=== PATIENT | male | born 1955 | race Two or more races ===

== ENCOUNTER 2021-01-31 08:47 | Inpatient (IN) | payer OTHER ==
[2021-01-31] MEDS ORDERED: Apixaban 5 MG Tab PO ONE (09:06)
[2021-01-31] MEDS ORDERED: Diltiazem 50 MG/10 ML SDV ONE (09:06)
[2021-01-31] MEDS: Diltiazem 50 MG/10 ML SDV IVPUSH ONE ×2 (09:07→09:19)
[2021-01-31] MEDS ORDERED: Sodium Chloride 0.9% 10 ML Syringe FLUSH PRN ×2 (09:07→11:42)
--- NOTE | 2021-01-31 09:16 | EDM.PDOC ---
ED HPI GENERAL MEDICAL PROBLEM - General Chief Complaint: Chest Pain Stated Complaint: CHEST PAIN/SOB Time Seen by Provider: 01/31/21 08:55 Source of Information: Reports: Patient History Limitations: Reports: No Limitations - History of Present Illness INITIAL COMMENTS - FREE TEXT/NARRATIVE: 65-year-old male presents to the emergency department today with complaints of shortness of breath and chest pain. He states this started 4 days ago. He states he was just resting at home when he developed the pain and shortness of breath. Patient denies any recent fever, chills, nausea, vomiting or diarrhea. He states nothing weeks the chest pain and shortness of breath worse or better. He does have a history of diabetes for which he is insulin-dependent however he ran out of his insulin about 1 week ago and has not refilled it. He states this is due to financial reasons and he cannot afford it. Nursing staff reports that his bedside blood glucose is 244. Patient states he does have a history of atrial fibrillation in the past however he states he was not started on any chronic medications or blood thinners. He reports he was hospitalized for this once in the past and eventually his heart went back into a normal rhythm and then he was discharged home. Chest Pain Score (Numeric/FACES): 2 - Related Data Allergies Allergy/AdvReac Type Severity Reaction Status Date / Time No Known Allergies Allergy Verified 01/31/21 09:12 Home Meds: Home Meds metFORMIN [Glucophage] 1,000 mg PO BID 10/25/15 [History] Empagliflozin [Jardiance] 25 mg PO 01/31/21 [History] Insulin Glarg,Human.Rec.Analog [Lantus] 32 units SQ BEDTIME 01/31/21 [History] Past Medical History HEENT History: Reports: Impaired Vision Other HEENT History: reading eyeglasses Cardiovascular History: Reports: Hypertension Musculoskeletal History: Reports: Fracture Endocrine/Metabolic History: Reports: Diabetes, Type II ED ROS GENERAL - Review of Systems Review Of Systems: See Below Constitutional: Reports: No Symptoms HEENT: Reports: No Symptoms Respiratory: Reports: Shortness of Breath. Denies: Pleuritic Chest Pain, Cough, Sputum Cardiovascular: Reports: Chest Pain (X4 days), Dyspnea on Exertion (X4 days), Edema (To bilateral lower extremities), Palpitations Endocrine: Reports: High Glucose (Due to the patient running out of his insulin approximately 1 week ago) GI/Abdominal: Reports: No Symptoms : Reports: Other (States he has noticed very little urination over the past 4 days) Musculoskeletal: Reports: No Symptoms Skin: Reports: No Symptoms Neurological: Reports: No Symptoms Psychiatric: Reports: No Symptoms Hematologic/Lymphatic: Reports: No Symptoms Immunologic: Reports: No Symptoms ED EXAM, GENERAL - Physical Exam Exam: See Below Exam Limited By: No Limitations General Appearance: Alert, WD/WN, No Apparent Distress Ears: Normal External Exam, Hearing Grossly Normal Nose: Normal Inspection Throat/Mouth: Normal Inspection, Normal Lips, Normal Voice, No Airway Compromise Head: Atraumatic Neck: Normal Inspection Respiratory/Chest: No Respiratory Distress, Lungs Clear, Normal Breath Sounds, No Accessory Muscle Use, Chest Non-Tender Cardiovascular: Normal Peripheral Pulses, Irregularly Irregular (Atrial fibrillation with ventricular rate in 140s to 150s). No: No Edema (Trace of bilateral lower extremity edema) Peripheral Pulses: 2+: Radial (L), Radial (R) GI/Abdominal: Normal Bowel Sounds, Soft, Non-Tender, No Distention (Male) Exam: Deferred Rectal (Males) Exam: Deferred Back Exam: Normal Inspection Extremities: Normal Inspection, Normal Range of Motion, Non-Tender, Normal Capillary Refill, Pedal Edema. No: No Pedal Edema Neurological: Alert, Oriented, Normal Cognition Psychiatric: Normal Affect, Normal Mood Skin Exam: Warm, Dry, Intact, No Rash, Pallor Lymphatic: No Adenopathy #1 Interpretation EKG Date: 01/31/21 Time: 08:54 Rhythm: NSR Rate (Beats/Min): 153 P-Wave: Absent QRS: Normal ST-T: Normal QT: Normal Comparison: NA - No Prior EKG EKG Interpretation Comments: Per Dr. Martin interpretation: Probable atrial fibrillation with RVR; nonspecific ST changes probably secondary to tachydysrhythmia Course - Vital Signs Text/Narrative:: Patient presents with 4-day history of complaints of shortness of breath and chest pain. He states that this started about 4 days ago as he was at home resting. Nothing seems to worsen or make the chest pain and shortness of breath better. Known history of atrial fibrillation in the past x1 episode for which she was hospitalized. By the sounds of it he converted to normal sinus rhythm and was discharged to home. He does not currently take any anticoagulants or medications for rate control. States his primary care physician is located in [place] at [facility]. Known history of insulin-dependent diabetes however he ran out of his insulin about a week ago and did not refill it due to being unable to afford the medications. Stat twelve-lead EKG reveals the patient is in atrial fib with a rapid ventricular rate 140s to 150s. His lung sounds are clear however he does have a trace of pedal edema noted to his bilateral lower extremities. I have ordered labs, EKG, chest x-ray. The patient will also receive 10 mg of IV diltiazem x1 dose and we will repeat this in 10 minutes if rate is not coming down. Patient will likely need to be started on a Cardizem drip. I have started the patient on Eliquis 5mg x1 dose per Dr. Martin recommendations. Last Recorded V/S: Last Vital Signs Temp 97 F 02/01/21 07:49 Pulse 80 02/01/21 10:20 Resp 16 02/01/21 07:49 BP 110/64 02/01/21 10:20 Pulse Ox 92 L 02/01/21 07:49 - Orders/Labs/Meds Orders: Medication Orders Acetaminophen (Acetaminophen 325 Mg Tab) 650 mg PO Q6H PRN PRN Reason: Pain (Mild 1-3)/fever Hydrocodone Bitart/Acetaminophen (Acetaminophen/Hydrocodone 325-5 Mg Tab) 1 tab PO Q6H PRN PRN Reason: Pain (moderate 4-6) Albuterol/Ipratropium (Albuterol/Ipratropium 3.0-0.5 Mg/3 Ml Neb Soln) 3 ml NEB Q4H PRN PRN Reason: Shortness Of Breath/wheezing Apixaban (Apixaban 5 Mg Tab) 5 mg PO BID [facility] Last Admin: 02/01/21 07:59 Dose: 5 mg Documented by: Admin: 01/31/21 20:11 Dose: 5 mg Documented by: TRACI Aspirin (Aspirin 81 Mg Tab.Ec) 81 mg PO DAILY [facility] Last Admin: 02/01/21 07:59 Dose: 81 mg Documented by: Admin: 01/31/21 16:59 Dose: 81 mg Documented by: LUBNA Atorvastatin Calcium (Atorvastatin 20 Mg Tab) 20 mg PO BEDTIME [facility] Last Admin: 01/31/21 20:11 Dose: 20 mg Documented by: TRACI Promethazine HCl 12.5 mg/ (Sodium Chloride) 50.5 mls @ 100 mls/hr IV Q6H PRN PRN Reason: Nausea/Vomiting Diltiazem HCl 100 mg/ Sodium (Chloride) 100 mls @ 5 mls/hr IV TITRATE RUBEN; Protocol Last Titration: 02/01/21 10:15 Dose: 10 mg/hr, 10 mls/hr Documented by: Admin: 02/01/21 07:53 Dose: 15 mg/hr, 15 mls/hr Documented by: Titration: 02/01/21 07:53 Dose: 15 mg/hr, 15 mls/hr Documented by: Admin: 02/01/21 01:53 Dose: 15 mg/hr, 15 mls/hr Documented by: TRACI Insulin Glargine (Insulin Glarg,Human.Rec.Analog 100 Unit/Ml) 10 unit SUBCUT DAILY [facility] Last Admin: 02/01/21 07:59 Dose: 10 unit Documented by: Admin: 01/31/21 16:57 Dose: 10 unit Documented by: LUBNA Insulin Human Lispro (Insulin Lispro 100 Unit/Ml 10 Ml Vial) 0 unit SUBCUT QIDACANDBED [facility]; Protocol Last Admin: 02/01/21 06:53 Dose: 2 unit Documented by: Admin: 01/31/21 21:07 Dose: 4 unit Documented by: Admin: 01/31/21 16:57 Dose: 2 unit Documented by: LUBNA Lorazepam (Lorazepam 2 Mg/Ml Sdv) 0.5 mg IV Q6H PRN PRN Reason: Agitation Metoprolol Tartrate (Metoprolol Tartrate 50 Mg Tab) 50 mg PO Q12H RUBEN Morphine Sulfate (Morphine 2 Mg/Ml Syringe) 2 mg IVPUSH Q4H PRN PRN Reason: Pain (severe 7-10) Stop: 02/01/21 13:01 Liraglutide [Victoza ] 18 Mg/3 Ml Pen Ptom 1.8 ml SQ DAILY [facility] Last Admin: 02/01/21 08:07 Dose: Not Given Documented by: Admin: 01/31/21 18:34 Dose: Not Given Documented by: SAKINA Sodium Chloride (Sodium Chloride 0.9% 10 Ml Syringe) 10 ml FLUSH ASDIRECTED PRN PRN Reason: Keep Vein Open Last Admin: 01/31/21 09:11 Dose: 10 ml Documented by: ARSH Labs: Laboratory Tests 01/31/21 01/31/21 01/31/21 Range/Units 08:55 08:55 08:55 WBC 12.82 H (4.23-9.07) K/mm3 RBC 4.44 L (4.63-6.08) M/mm3 Hgb 14.3 D (13.7-17.5) gm/dl Hct 41.4 (40.1-51.0) % MCV 93.2 H (79.0-92.2) fl MCH 32.2 (25.7-32.2) pg MCHC 34.5 (32.2-35.5) g/dl RDW Std Deviation 43.8 (35.1-43.9) fL Plt Count 270 (163-337) K/mm3 MPV 12.5 H (9.4-12.3) fl Neut % (Auto) 75.3 H (34.0-67.9) % Lymph % (Auto) 16.9 L (21.8-53.1) % Sanders % (Auto) 7.0 (5.3-12.2) % Eos % (Auto) 0.5 L (0.8-7.0) Baso % (Auto) 0.3 (0.1-1.2) % Neut # (Auto) 9.64 H (1.78-5.38) K/mm3 Lymph # (Auto) 2.17 (1.32-3.57) K/mm3 Sanders # (Auto) 0.90 H (0.30-0.82) K/mm3 Eos # (Auto) 0.07 (0.04-0.54) K/mm3 Baso # (Auto) 0.04 (0.01-0.08) K/mm3 D-Dimer, Quantitative 0.67 H (0.19-0.50) mg/L Sodium 140 (136-145) mEq/L Potassium 4.4 (3.5-5.1) mEq/L Chloride 104 (98-107) mEq/L Carbon Dioxide 24 (21-32) mEq/L Anion Gap 16.4 H (5-15) BUN 38 H (7-18) mg/dL Creatinine 1.4 H (0.7-1.3) mg/dL Est Cr Clr Drug Dosing 54.32 mL/min Estimated GFR (MDRD) 51 (>60) mL/min BUN/Creatinine Ratio 27.1 H (14-18) Glucose 288 H (70-99) mg/dL POC Glucose (70-99) mg/dL Calcium 8.5 (8.5-10.1) mg/dL Magnesium 2.2 (1.8-2.4) mg/dL Total Bilirubin 0.5 (0.2-1.0) mg/dL AST 22 (15-37) U/L ALT 31 (16-63) U/L Alkaline Phosphatase 82 (46-116) U/L Troponin I < 0.017 (0.00-0.056) ng/mL C-Reactive Protein 0.8 (<1.0) mg/dL NT-Pro-B Natriuret Pep (0-125) pg/mL Total Protein 6.9 (6.4-8.2) g/dl Albumin 3.5 (3.4-5.0) g/dl Globulin 3.4 gm/dL Albumin/Globulin Ratio 1.0 (1-2) TSH 3rd Generation 1.426 (0.358-3.74) uIU/mL SARS-CoV-2 RNA (DEVIN) (NEGATIVE) 01/31/21 01/31/21 01/31/21 Range/Units 08:55 08:59 09:27 WBC (4.23-9.07) K/mm3 RBC (4.63-6.08) M/mm3 Hgb (13.7-17.5) gm/dl Hct (40.1-51.0) % MCV (79.0-92.2) fl MCH (25.7-32.2) pg MCHC (32.2-35.5) g/dl RDW Std Deviation (35.1-43.9) fL Plt Count (163-337) K/mm3 MPV (9.4-12.3) fl Neut % (Auto) (34.0-67.9) % Lymph % (Auto) (21.8-53.1) % Sanders % (Auto) (5.3-12.2) % Eos % (Auto) (0.8-7.0) Baso % (Auto) (0.1-1.2) % Neut # (Auto) (1.78-5.38) K/mm3 Lymph # (Auto) (1.32-3.57) K/mm3 Sanders # (Auto) (0.30-0.82) K/mm3 Eos # (Auto) (0.04-0.54) K/mm3 Baso # (Auto) (0.01-0.08) K/mm3 D-Dimer, Quantitative (0.19-0.50) mg/L Sodium (136-145) mEq/L Potassium (3.5-5.1) mEq/L Chloride (98-107) mEq/L Carbon Dioxide (21-32) mEq/L Anion Gap (5-15) BUN (7-18) mg/dL Creatinine (0.7-1.3) mg/dL Est Cr Clr Drug Dosing mL/min Estimated GFR (MDRD) (>60) mL/min BUN/Creatinine Ratio (14-18) Glucose (70-99) mg/dL POC Glucose 244 H (70-99) mg/dL Calcium (8.5-10.1) mg/dL Magnesium (1.8-2.4) mg/dL Total Bilirubin (0.2-1.0) mg/dL AST (15-37) U/L ALT (16-63) U/L Alkaline Phosphatase (46-116) U/L Troponin I (0.00-0.056) ng/mL C-Reactive Protein (<1.0) mg/dL NT-Pro-B Natriuret Pep 6679 H (0-125) pg/mL Total Protein (6.4-8.2) g/dl Albumin (3.4-5.0) g/dl Globulin gm/dL Albumin/Globulin Ratio (1-2) TSH 3rd Generation (0.358-3.74) uIU/mL SARS-CoV-2 RNA (DEVIN) Negative (NEGATIVE) Meds: Medications Generic Name Dose Route Start Last Admin Trade Name Freq PRN Reason Stop Dose Admin Acetaminophen 650 mg 01/31/21 12:59 Acetaminophen 325 Mg Tab PO Q6H PRN Pain (Mild 1-3)/fever Hydrocodone Bitart/Acetaminophen 1 tab 01/31/21 12:59 Acetaminophen/Hydrocodone 325-5 Mg Tab PO Q6H PRN Pain (moderate 4-6) Albuterol/Ipratropium 3 ml 01/31/21 12:59 Albuterol/Ipratropium 3.0-0.5 Mg/3 Ml Neb Soln NEB Q4H PRN Shortness Of Breath/wheezing Apixaban 5 mg 01/31/21 21:00 02/01/21 07:59 Apixaban 5 Mg Tab PO 5 mg BID RUBEN Administration Aspirin 81 mg 01/31/21 15:00 02/01/21 07:59 Aspirin 81 Mg Tab.Ec PO 81 mg DAILY RUBEN Administration Atorvastatin Calcium 20 mg 01/31/21 21:00 01/31/21 20:11 Atorvastatin 20 Mg Tab PO 20 mg BEDTIME RUBEN Administration Promethazine HCl 12.5 mg/ 50.5 mls @ 100 mls/hr 01/31/21 12:59 Sodium Chloride IV Q6H PRN Nausea/Vomiting Diltiazem HCl 100 mg/ Sodium 100 mls @ 5 mls/hr 01/31/21 13:15 02/01/21 10:15 Chloride IV 10 mg/hr TITRATE RUBEN 10 mls/hr Titration Protocol 5 MG/HR Insulin Glargine 10 unit 01/31/21 15:00 02/01/21 07:59 Insulin Glarg,Human.Rec.Analog 100 Unit/Ml SUBCUT 10 unit DAILY RUBEN Administration Insulin Human Lispro 0 unit 01/31/21 17:00 02/01/21 06:53 Insulin Lispro 100 Unit/Ml 10 Ml Vial SUBCUT 2 unit QIDACANDBED RUBEN Administration Protocol Lorazepam 0.5 mg 01/31/21 12:59 Lorazepam 2 Mg/Ml Sdv IV Q6H PRN Agitation Metoprolol Tartrate 50 mg 02/01/21 21:00 Metoprolol Tartrate 50 Mg Tab PO Q12H RUBEN Morphine Sulfate 2 mg 01/31/21 12:59 Morphine 2 Mg/Ml Syringe IVPUSH 02/01/21 13:01 Q4H PRN Pain (severe 7-10) Liraglutide [Victoza 1.8 ml 01/31/21 13:15 02/01/21 08:07 ] 18 Mg/3 Ml Pen SQ Not Given Ptom DAILY RUBEN Sodium Chloride 10 ml 01/31/21 09:07 01/31/21 09:11 Sodium Chloride 0.9% 10 Ml Syringe FLUSH 10 ml ASDIRECTED PRN Administration Keep Vein Open Discontinued Medications Generic Name Dose Route Start Last Admin Trade Name Freq PRN Reason Stop Dose Admin Apixaban 5 mg 01/31/21 09:06 01/31/21 09:15 Apixaban 5 Mg Tab PO 01/31/21 09:07 5 mg ONETIME ONE Administration Diltiazem HCl 20 mg 01/31/21 09:06 01/31/21 09:19 Diltiazem 50 Mg/10 Ml Sdv IVPUSH 01/31/21 09:07 10 mg ONETIME ONE Administration Diltiazem HCl Confirm 01/31/21 09:06 01/31/21 09:11 Diltiazem 50 Mg/10 Ml Sdv Administered 01/31/21 09:07 Not Given Dose 50 mg .ROUTE .STK-MED ONE Furosemide 40 mg 01/31/21 10:12 01/31/21 10:35 Furosemide 40 Mg/4 Ml Vial IVPUSH 01/31/21 10:13 40 mg NOW ONE Administration Furosemide 20 mg 02/01/21 09:00 02/01/21 07:59 Furosemide 20 Mg/2 Ml Vial IVPUSH 20 mg BID RUBEN Administration Heparin Sodium (Porcine) 5,000 units 01/31/21 13:00 01/31/21 18:35 Heparin Sodium 5,000 Units/Ml Vial SUBCUT Not Given Q8H RUBEN Diltiazem HCl 100 mg/ Sodium 100 mls @ 5 mls/hr 01/31/21 10:00 01/31/21 14:41 Chloride IV 15 mg/hr TITRATE RUBEN 15 mls/hr Titration Protocol 5 MG/HR Sodium Chloride 500 mls @ 250 mls/hr 01/31/21 11:38 01/31/21 11:51 Normal Saline IV 01/31/21 13:37 250 mls/hr .BOLUS ONE Administration Sodium Chloride 100 mls @ 75 mls/hr 01/31/21 11:45 01/31/21 12:43 Normal Saline IV 75 mls/hr ASDIRECTED RUBEN Administration Iopamidol 100 ml 01/31/21 11:42 01/31/21 12:42 Iopamidol 755 Mg/Ml 100 Ml Bottle IVPUSH 01/31/21 11:43 100 ml ONETIME ONE Administration Metoprolol Tartrate 12.5 mg 02/01/21 06:00 Metoprolol Tartrate 25 Mg Tab PO Q12H RUBEN Metoprolol Tartrate 12.5 mg 01/31/21 15:00 01/31/21 16:59 Metoprolol Tartrate 25 Mg Tab PO 01/31/21 15:01 12.5 mg ONETIME ONE Administration Metoprolol Tartrate 25 mg 01/31/21 21:00 02/01/21 07:59 Metoprolol Tartrate 25 Mg Tab PO 25 mg Q12H RUBEN Administration Metoprolol Tartrate 5 mg 01/31/21 21:39 02/01/21 00:03 Metoprolol Tartrate 5 Mg/5 Ml Sdv IVPUSH 5 mg ONETIME PRN Administration Other Metoprolol Tartrate 5 mg 01/31/21 23:32 Metoprolol Tartrate 5 Mg/5 Ml Sdv IVPUSH ONETIME PRN Other Metoprolol Tartrate 25 mg 02/01/21 10:00 02/01/21 10:20 Metoprolol Tartrate 25 Mg Tab PO 02/01/21 10:01 25 mg ONETIME ONE Administration Sodium Chloride 10 ml 01/31/21 11:42 01/31/21 12:43 Sodium Chloride 0.9% 10 Ml Syringe FLUSH 10 ml ONETIME PRN Administration IV FLUSH - Re-Assessments/Exams Free Text/Narrative Re-Assessment/Exam: 01/31/21 09:56 Radiologist impression portable view of the chest: Heart is slightly enlarged. Diffuse increased lung markings are noted most likely representing pulmonary vascular congestion. Lungs otherwise are clear. Bony structures show nothing acute. 01/31/21 10:14 Hematology reveals a WBC of 12.82, hemoglobin 14.3, hematocrit 41.4, coagulation reveals a D-dimer of 0.67; chemistry reveals a sodium of 140, potassium 4.4, carbon dioxide 24, anion gap 16.4, BUN 38, creatinine 1.4, glucose 288, magnesium 2.2, AST 22, ALT 31, troponin less than 0.017, C-reactive protein 0.8, proBNP 6679, TSH 1.426 01/31/21 1133 The patient reports feeling better after being on the Cardizem drip. He states he no longer has chest pain and shortness of breath is easing up after receiving 40 mg of IV Lasix. After further questioning, the patient admits to taking Eliquis in the past. He states he did stop taking this about 1 year ago as he could no longer afford the medication. He had also been on metoprolol in the past as well and has not been taking this for over a year. I do feel that this patient needs to be admitted to the hospital. I have phoned Dr. Garcia, the hospitalist on-call and he has accepted care of the patient. However, he is also requesting that I order a CTA of the patient as his D-dimer was slightly e levated and he has been off of his Eliquis for over a year. I have elected to give the patient 250 cc bolus of normal saline and then repeat x1 if he tolerates it as the patient's creatinine was slightly elevated at 1.4. Dr. Garcia is also requesting the patient receive an ultrasound Doppler studies of the bilateral lower extremities. Pt will be admitted to ICU under observation status. He will likely remain in the ER as we are awaiting for a bed to become available in the ICU. 01/31/21 13:35 Radiologist impression bilateral lower extremity deep venous ultrasound; 1. No findings of deep venous thrombosis within the right or left lower extremity Radiologist impression CT of the chest; 1. Findings suspicious for CHF as described. 2. No findings of pulmonary embolism are seen. Dr. Garcia is here to see the patient. He is still waiting a bed as we are waiting for patient to be discharged in ICU before the patient can be transferred to the unit. Departure - Departure Time of Disposition: 15:45 Disposition: Admitted As Inpatient 66 Condition: Good Clinical Impression: Atrial fibrillation with rapid ventricular response Sepsis Event Note (ED) - Evaluation Sepsis Screening Result: No Definite Risk
--- NOTE | 2021-01-31 09:46 | CR ---
Chest: Portable view of the chest was obtained. Comparison: Prior chest x-ray of 10/25/15. Heart is slightly enlarged. Diffuse increased lung markings are noted most likely representing pulmonary vascular congestion. Lungs otherwise are clear. Bony structures show nothing acute. Impression: 1. Findings are suspicious for CHF. Please correlate if this matches clinically. Diagnostic code #3
[2021-01-31] MEDS ORDERED: Diltiazem 100 MG in Sodium Chloride 0.9% 100 ML IV SCH (10:00)
[2021-01-31] MEDS ORDERED: Furosemide 40 MG/4 ML VIAL IVPUSH ONE (10:12)
[2021-01-31] MEDS ORDERED: Sodium Chloride 0.9% 500 ML IV ONE (11:38)
[2021-01-31] MEDS ORDERED: Iopamidol 755 Mg/ML 100 ML Bottle IVPUSH ONE (11:42)
[2021-01-31] MEDS ORDERED: Sodium Chloride 0.9% 100 ML IV SCH (11:45)
[2021-01-31] MEDS ORDERED: Acetaminophen/HYDROcodone 325-5 MG Tab PO PRN (12:59)
[2021-01-31] MEDS ORDERED: Acetaminophen 325 MG Tab PO PRN (12:59)
[2021-01-31] MEDS ORDERED: Morphine 2 MG/ML SYRINGE IVPUSH PRN (12:59)
[2021-01-31] MEDS ORDERED: Promethazine 12.5 MG in Sodium Chloride 0.9% 50 ML IV PRN (12:59)
[2021-01-31] MEDS ORDERED: LORazepam 2 MG/ML SDV IV PRN (12:59)
[2021-01-31] MEDS ORDERED: Albuterol/Ipratropium 3.0-0.5 MG/3 ML Neb Soln NEB PRN (12:59)
[2021-01-31] MEDS ORDERED: Heparin Sodium 5,000 Units/ML Vial SUBCUT SCH (13:00)
--- NOTE | 2021-01-31 13:05 | CT ---
CT chest Technique: Multiple axial sections through the chest were obtained. Intravenous contrast was utilized. Study has been performed as a pulmonary angiogram protocol. Comparison: Prior chest x-ray performed earlier on the same day. Findings: Small bilateral pleural effusions are seen. Heart is enlarged. Coronary artery calcification is noted. Visualized upper abdominal structures show nothing acute. Pulmonary arteries are well opacified. No filling defects are seen to indicate pulmonary embolism. Mediastinum shows normal sized lymph nodes. Diffuse increased lung markings are seen on both sides of the chest suspicious for diffuse pulmonary vascular congestion. Bone window settings were reviewed which show mild scattered degenerative change within the spine. No acute osseous abnormality is appreciated. Impression: 1. Findings suspicious for CHF as described above. 2. No findings of pulmonary embolism are seen. Diagnostic code #3
--- NOTE | 2021-01-31 13:05 | US ---
Bilateral lower extremity deep venous ultrasound: Duplex and color Doppler evaluation were obtained of the right and left common femoral, proximal greater saphenous, superficial femoral, popliteal, posterior tibial and peroneal veins. Comparison: No prior venous imaging is available. Findings: Normal phasic flow, augmentation and compression is seen. Impression: 1. No findings of deep venous thrombosis within the right or left lower extremity. Diagnostic code #1
--- NOTE | 2021-01-31 13:40 | PCM.HP.2 ---
H&P History of Present Illness - General Date of Service: 01/31/21 Admit Problem/Dx: Admission Diagnosis/Problem Admission Diagnosis/Problem Afib, Atrial fibrillation Source of Information: Patient, Other (chart) - History of Present Illness Initial Comments - Free Text/Narative: Patient is a 65-year-old male with a history of diabetes, atrial fibrillation, and hypertension who presented to the ER due to shortness of breath and chest pain for 4 days. As per patient, he has been having shortness of breath for 4 days. he also feels dizzy and has diffuse chest pain whenever he moves. The pain is dull in nature and 5 out of 10 in severity. Otherwise he denies headache, fever, chills, nausea, vomiting, abdominal pain, or dysuria. In the ER, she needs oxygen 2 L via nasal cannula. His heart rate up to 150. He is not on home oxygen. he has diabetes but ran out of his insulin about 1 week ago and has not refilled it. His blood glucose of 244 in the ER. As per patient, he was admitted to our hospital 4 years ago due to atrial fibrillation with RVR. He is not on medication including blood thinner for atrial fibrillation. Chest Pain Score (Numeric/FACES): 2 - Related Data Allergies/Adverse Reactions: Allergies Allergy/AdvReac Type Severity Reaction Status Date / Time No Known Allergies Allergy Verified 01/31/21 09:12 Home Medications: Home Meds Liraglutide [Victoza] 1.8 ml SQ DAILY 10/25/15 [History] metFORMIN [Glucophage] 1,000 mg PO BID 10/25/15 [History] Insulin Glarg,Human.Rec.Analog [Lantus] 32 units SQ BEDTIME 01/31/21 [History] Past Medical History HEENT History: Reports: Cataract, Impaired Vision Other HEENT History: reading eyeglasses Cardiovascular History: Reports: Afib, Hypertension Musculoskeletal History: Reports: Fracture Endocrine/Metabolic History: Reports: Diabetes, Type II - Past Surgical History HEENT Surgical History: Reports: Cataract Surgery Social & Family History - Family History Family Medical History: No Pertinent Family History (Denies genetic diseases in family) - Tobacco Use Tobacco Use Status *Q: Never Tobacco User Second Hand Smoke Exposure: No - Caffeine Use Caffeine Use: Reports: None - Recreational Drug Use Recreational Drug Use: No H&P Review of Systems - Review of Systems: Review Of Systems: See Below General: Reports: No Symptoms HEENT: Reports: No Symptoms Pulmonary: Reports: Shortness of Breath Cardiovascular: Reports: Chest Pain Gastrointestinal: Reports: No Symptoms Genitourinary: Reports: No Symptoms Musculoskeletal: Reports: No Symptoms Skin: Reports: No Symptoms Psychiatric: Reports: No Symptoms Neurological: Reports: Dizziness Hematologic/Lymphatic: Reports: No Symptoms Immunologic: Reports: No Symptoms Exam - Exam Exam: See Below - Vital Signs Vital Signs: Last Vital Signs Temp 36.8 C 01/31/21 09:08 Pulse 119 H 01/31/21 10:36 Resp 20 01/31/21 10:36 BP 119/95 H 01/31/21 10:36 Pulse Ox 94 L 01/31/21 10:36 Weight: 98.883 kg - Exam General: Alert, Oriented, Cooperative HEENT: Conjunctiva Clear, EOMI, Pupils Equal, Pupils Reactive Neck: Supple, Full Range of Motion Lungs: Clear to Auscultation, Normal Respiratory Effort Cardiovascular: Irregular Rhythm GI/Abdominal Exam: Normal Bowel Sounds, Soft, Non-Tender, No Organomegaly Extremities: Normal Inspection, Normal Range of Motion, Non-Tender, Pedal Edema (1 to 2+) Skin: Warm, Dry, Intact Neurological: Strength Equal Bilateral, Normal Speech, Normal Tone, Sensation Intact Neuro Extensive - Mental Status: Alert, Oriented x3, Normal Mood/Affect Psychiatric: Normal Affect, Normal Mood - Patient Data Lab Results Last 24 hrs: Laboratory Results - last 24 hr 01/31/21 01/31/21 01/31/21 Range/Units 08:55 08:55 08:55 WBC 12.82 H (4.23-9.07) K/mm3 RBC 4.44 L (4.63-6.08) M/mm3 Hgb 14.3 D (13.7-17.5) gm/dl Hct 41.4 (40.1-51.0) % MCV 93.2 H (79.0-92.2) fl MCH 32.2 (25.7-32.2) pg MCHC 34.5 (32.2-35.5) g/dl RDW Std Deviation 43.8 (35.1-43.9) fL Plt Count 270 (163-337) K/mm3 MPV 12.5 H (9.4-12.3) fl Neut % (Auto) 75.3 H (34.0-67.9) % Lymph % (Auto) 16.9 L (21.8-53.1) % [place] % (Auto) 7.0 (5.3-12.2) % Eos % (Auto) 0.5 L (0.8-7.0) Baso % (Auto) 0.3 (0.1-1.2) % Neut # (Auto) 9.64 H (1.78-5.38) K/mm3 Lymph # (Auto) 2.17 (1.32-3.57) K/mm3 [place] # (Auto) 0.90 H (0.30-0.82) K/mm3 Eos # (Auto) 0.07 (0.04-0.54) K/mm3 Baso # (Auto) 0.04 (0.01-0.08) K/mm3 D-Dimer, Quantitative 0.67 H (0.19-0.50) mg/L Sodium 140 (136-145) mEq/L Potassium 4.4 (3.5-5.1) mEq/L Chloride 104 (98-107) mEq/L Carbon Dioxide 24 (21-32) mEq/L Anion Gap 16.4 H (5-15) BUN 38 H (7-18) mg/dL Creatinine 1.4 H (0.7-1.3) mg/dL Est Cr Clr Drug Dosing 54.32 mL/min Estimated GFR (MDRD) 51 (>60) mL/min BUN/Creatinine Ratio 27.1 H (14-18) Glucose 288 H (70-99) mg/dL POC Glucose (70-99) mg/dL Calcium 8.5 (8.5-10.1) mg/dL Magnesium 2.2 (1.8-2.4) mg/dL Total Bilirubin 0.5 (0.2-1.0) mg/dL AST 22 (15-37) U/L ALT 31 (16-63) U/L Alkaline Phosphatase 82 (46-116) U/L Troponin I < 0.017 (0.00-0.056) ng/mL C-Reactive Protein 0.8 (<1.0) mg/dL NT-Pro-B Natriuret Pep (0-125) pg/mL Total Protein 6.9 (6.4-8.2) g/dl Albumin 3.5 (3.4-5.0) g/dl Globulin 3.4 gm/dL Albumin/Globulin Ratio 1.0 (1-2) TSH 3rd Generation 1.426 (0.358-3.74) uIU/mL SARS-CoV-2 RNA (DEVIN) (NEGATIVE) 01/31/21 01/31/21 01/31/21 Range/Units 08:55 08:59 09:27 WBC (4.23-9.07) K/mm3 RBC (4.63-6.08) M/mm3 Hgb (13.7-17.5) gm/dl Hct (40.1-51.0) % MCV (79.0-92.2) fl MCH (25.7-32.2) pg MCHC (32.2-35.5) g/dl RDW Std Deviation (35.1-43.9) fL Plt Count (163-337) K/mm3 MPV (9.4-12.3) fl Neut % (Auto) (34.0-67.9) % Lymph % (Auto) (21.8-53.1) % [place] % (Auto) (5.3-12.2) % Eos % (Auto) (0.8-7.0) Baso % (Auto) (0.1-1.2) % Neut # (Auto) (1.78-5.38) K/mm3 Lymph # (Auto) (1.32-3.57) K/mm3 [place] # (Auto) (0.30-0.82) K/mm3 Eos # (Auto) (0.04-0.54) K/mm3 Baso # (Auto) (0.01-0.08) K/mm3 D-Dimer, Quantitative (0.19-0.50) mg/L Sodium (136-145) mEq/L Potassium (3.5-5.1) mEq/L Chloride (98-107) mEq/L Carbon Dioxide (21-32) mEq/L Anion Gap (5-15) BUN (7-18) mg/dL Creatinine (0.7-1.3) mg/dL Est Cr Clr Drug Dosing mL/min Estimated GFR (MDRD) (>60) mL/min BUN/Creatinine Ratio (14-18) Glucose (70-99) mg/dL POC Glucose 244 H (70-99) mg/dL Calcium (8.5-10.1) mg/dL Magnesium (1.8-2.4) mg/dL Total Bilirubin (0.2-1.0) mg/dL AST (15-37) U/L ALT (16-63) U/L Alkaline Phosphatase (46-116) U/L Troponin I (0.00-0.056) ng/mL C-Reactive Protein (<1.0) mg/dL NT-Pro-B Natriuret Pep 6679 H (0-125) pg/mL Total Protein (6.4-8.2) g/dl Albumin (3.4-5.0) g/dl Globulin gm/dL Albumin/Globulin Ratio (1-2) TSH 3rd Generation (0.358-3.74) uIU/mL SARS-CoV-2 RNA (DEVIN) Negative (NEGATIVE) Result Diagrams: 01/31/21 08:55 01/31/21 08:55 Sepsis Event Note - Evaluation Sepsis Screening Result: No Definite Risk - Focused Exam Vital Signs: Vital Signs Temp Pulse Resp BP Pulse Ox 01/31/21 10:36 119 H 20 119/95 H 94 L 01/31/21 09:08 36.8 C 143 H 16 125/69 96 01/31/21 08:50 35.8 C L 146 H 24 H 152/95 H 90 L Problem List Initiated/Reviewed/Updated: Yes Orders Last 24hrs: Active Orders 24 hr Category Date Time Status Admission Status [Patient Status] [ADT] Routine ADT 01/31/21 12:17 Active Blood Glucose Check, Bedside [RC] QIDACANDBED Care 01/31/21 12:59 Ordered Cardiac Monitoring [RC] CONTINUOUS Care 01/31/21 13:00 Ordered Communication Order [RC] Per Unit Routine Care 01/31/21 13:06 Ordered Communication Order [RC] Per Unit Routine Care 01/31/21 13:06 Ordered Diabetes Education [RC] Click to Edit Care 01/31/21 13:01 Ordered EKG Documentation Completion [RC] ASDIRECTED Care 01/31/21 08:53 Active Intake and Output [RC] QSHIFT Care 01/31/21 12:59 Ordered Oxygen Therapy [RC] PRN Care 01/31/21 12:59 Ordered Pulse Oximetry [RC] CONTINUOUS Care 01/31/21 13:00 Ordered RT Aerosol Therapy [RC] ASDIRECTED Care 01/31/21 13:03 Ordered Up to Chair [RC] ASDIRECTED Care 01/31/21 12:59 Ordered VTE/DVT Education [RC] PER UNIT ROUTINE Care 01/31/21 12:59 Ordered Vital Signs [RC] Q4H Care 01/31/21 12:59 Ordered OT Evaluation and Treatment [CONS] Routine Cons 01/31/21 12:59 Ordered PT Evaluation and Treatment [CONS] Routine Cons 01/31/21 12:59 Ordered Respiratory Care Assess and Treatment [CONS] Routine Cons 01/31/21 12:59 Ordered 2 Gram Sodium Diet [DIET] Diet 01/31/21 Lunch Ordered Consistent Carbohydrate Diet [DIET] Diet 01/31/21 Lunch Ordered Echo Comp wo Cont [US] Stat Exams 01/31/21 13:16 Ordered CBC WITH AUTO DIFF [HEME] DAILY Lab 02/01/21 05:00 Ordered CBC WITH AUTO DIFF [HEME] DAILY Lab 02/02/21 05:00 Ordered CBC WITH AUTO DIFF [HEME] DAILY Lab 02/03/21 05:00 Ordered CBC WITH AUTO DIFF [HEME] DAILY Lab 02/04/21 05:00 Ordered CBC WITH AUTO DIFF [HEME] DAILY Lab 02/05/21 05:00 Ordered COMPREHENSIVE METABOLIC PN,CMP [CHEM] DAILY Lab 02/01/21 05:00 Ordered COMPREHENSIVE METABOLIC PN,CMP [CHEM] DAILY Lab 02/02/21 05:00 Ordered COMPREHENSIVE METABOLIC PN,CMP [CHEM] DAILY Lab 02/03/21 05:00 Ordered COMPREHENSIVE METABOLIC PN,CMP [CHEM] DAILY Lab 02/04/21 05:00 Ordered COMPREHENSIVE METABOLIC PN,CMP [CHEM] DAILY Lab 02/05/21 05:00 Ordered INR,PT,PROTHROMBIN TIME [COAG] Routine Lab 01/31/21 12:59 Ordered MAGNESIUM [CHEM] Routine Lab 01/31/21 12:59 Ordered PHOSPHORUS [CHEM] Routine Lab 01/31/21 12:59 Ordered PTT,PARTIAL THROMBOPLSTIN TIME [COAG] Routine Lab 01/31/21 12:59 Ordered TROPONIN I [CHEM] Q6H Lab 01/31/21 12:59 Ordered TROPONIN I [CHEM] Q6H Lab 01/31/21 18:59 Ordered UA RFX ELI AND CULT IF INDIC [URIN] Stat Lab 01/31/21 09:07 Ordered Acetaminophen [TylenoL] Med 01/31/21 12:59 Ordered 650 mg PO Q6H PRN Acetaminophen/HYDROcodone [[place] 325-5 MG] Med 01/31/21 12:59 Ordered 1 tab PO Q6H PRN Albuterol/Ipratropium [DuoNeb 3.0-0.5 MG/3 ML] Med 01/31/21 12:59 Ordered 3 ml NEB Q4H PRN Apixaban [Eliquis] Med 01/31/21 21:00 Ordered 5 mg PO BID Diltiazem 100 MG in Normal Saline @ 5 MG/HR(100ml) Med 01/31/21 13:15 Ordered Diltiazem [Cardizem] 100 mg Sodium Chloride 0.9% [Normal Saline] 100 ml IV TITRATE Furosemide [Lasix] Med 02/01/21 09:00 Ordered 20 mg IVPUSH BID Heparin Sodium Med 01/31/21 13:00 Ordered 5,000 units SUBCUT Q8H Insulin Glarg,Human.Rec.Analog [LantUS] Med 01/31/21 13:15 Ordered 10 unit SUBCUT DAILY Insulin Lispro [HumaLOG] Med 01/31/21 17:00 Ordered See Protocol SUBCUT QIDACANDBED LORazepam [Ativan] Med 01/31/21 12:59 Ordered 0.5 mg IV Q6H PRN Liraglutide [Victoza] Med 01/31/21 13:15 Ordered 1.8 ml SQ DAILY Metoprolol Tartrate [Lopressor] Med 01/31/21 13:15 Ordered 12.5 mg PO Q12H Morphine Med 01/31/21 12:59 Ordered 2 mg IVPUSH Q4H PRN Promethazine [Phenergan] 12.5 mg Med 01/31/21 12:59 Ordered Sodium Chloride 0.9% [Normal Saline] 50 ml IV Q6H Sodium Chloride 0.9% [Normal Saline] 100 ml Med 01/31/21 11:45 Active IV ASDIRECTED Sodium Chloride 0.9% [Normal Saline] 500 ml Med 01/31/21 11:38 Active IV .BOLUS Sodium Chloride 0.9% [Saline Flush] Med 01/31/21 09:07 Active 10 ml FLUSH ASDIRECTED PRN Sodium Chloride 0.9% [Saline Flush] Med 01/31/21 11:42 Active 10 ml FLUSH ONETIME PRN Glucose Management Sub Q Reflex [OM.PC] Click to Edit Oth 01/31/21 12:59 Ordered Saline Lock Insert [OM.PC] Stat Oth 01/31/21 09:07 Ordered EKG 12 Lead [EK] Stat Ther 01/31/21 08:53 Ordered Medication Orders Acetaminophen (Acetaminophen 325 Mg Tab) 650 mg PO Q6H PRN PRN Reason: Pain (Mild 1-3)/fever Hydrocodone Bitart/Acetaminophen (Acetaminophen/Hydrocodone 325-5 Mg Tab) 1 tab PO Q6H PRN PRN Reason: Pain (moderate 4-6) Albuterol/Ipratropium (Albuterol/Ipratropium 3.0-0.5 Mg/3 Ml Neb Soln) 3 ml NEB Q4H PRN PRN Reason: Shortness Of Breath/wheezing Apixaban (Apixaban 5 Mg Tab) 5 mg PO BID RUBEN Furosemide (Furosemide 20 Mg/2 Ml Vial) 20 mg IVPUSH BID RUBEN Heparin Sodium (Porcine) (Heparin Sodium 5,000 Units/Ml Vial) 5,000 units SUBCUT Q8H RUBEN Sodium Chloride (Normal Saline) 500 mls @ 250 mls/hr IV .BOLUS ONE Stop: 01/31/21 13:37 Last Admin: 01/31/21 11:51 Dose: 250 mls/hr Documented by: HOWIE Sodium Chloride (Normal Saline) 100 mls @ 75 mls/hr IV ASDIRECTED RUBEN Last Admin: 01/31/21 12:43 Dose: 75 mls/hr Documented by: ROSSY Promethazine HCl 12.5 mg/ (Sodium Chloride) 50.5 mls @ 100 mls/hr IV Q6H PRN PRN Reason: Nausea/Vomiting Diltiazem HCl 100 mg/ Sodium (Chloride) 100 mls @ 5 mls/hr IV TITRATE RUBEN; Protocol Insulin Glargine (Insulin Glarg,Human.Rec.Analog 100 Unit/Ml) 10 unit SUBCUT DAILY RUBEN Insulin Human Lispro (Insulin Lispro 100 Unit/Ml 10 Ml Vial) 0 unit SUBCUT QIDACANDBED RUBEN; Protocol Lorazepam (Lorazepam 2 Mg/Ml Sdv) 0.5 mg IV Q6H PRN PRN Reason: Agitation Metoprolol Tartrate (Metoprolol Tartrate 25 Mg Tab) 12.5 mg PO Q12H RUBEN Morphine Sulfate (Morphine 2 Mg/Ml Syringe) 2 mg IVPUSH Q4H PRN PRN Reason: Pain (severe 7-10) Stop: 02/01/21 13:01 Non-Formulary Medication (Liraglutide [Victoza]) 1.8 ml SQ DAILY [facility] Sodium Chloride (Sodium Chloride 0.9% 10 Ml Syringe) 10 ml FLUSH ASDIRECTED PRN PRN Reason: Keep Vein Open Last Admin: 01/31/21 09:11 Dose: 10 ml Documented by: ARSH Sodium Chloride (Sodium Chloride 0.9% 10 Ml Syringe) 10 ml FLUSH ONETIME PRN PRN Reason: IV FLUSH Last Admin: 01/31/21 12:43 Dose: 10 ml Documented by: ROSSY Assessment/Plan Comment:: Patient is a 65-year-old male with a history of diabetes, atrial fibrillation, and hypertension who presented to the ER due to shortness of breath and chest pain for 4 days. Assessment: Acute hypoxic respiratory failure -Etiology could be due to CHF, atrial fibrillation with RVR or cardiac ischemia. D-dimer positive, CT angio chest negative for PE -Not on home oxygen -Pulse ox -Oxygen therapy to keep oxygen saturation greater than 92% Atrial fibrillation with RVR -History of atrial fibrillation with RVR 4 years ago -Not on medication (including blood thinner) for his atrial fibrillation -Was on Eliquis. -Heart rate up to 150 in the ER -Possibly associated with chest pain Chest pain -Etiology unknown. Could be due to demand ischemia due to atrial fibrillation with RVR -EKG no ST elevation -Troponin was negative in the ER. CHF exacerbation? -BNP 6679 -Type unknown -CXR and CTA chest -cardiomegaly and pulmonary vascular congestion -Echocardiogram DM type II with hyperglycemia -Home medications include lantus 32 units bedtime, victoza and metformin -I would like to order the Lantus 10 units daily and insulin sliding scale. Adjust insulin based on sugar levels -Hemoglobin A1c HTN -Not on blood pressure medication -Hydralazine as needed CKD stage IIIA -creatinine 1.9 on 10/25/2015 -Could be due to diabetic nephropathy -Avoid nephrotoxic meds Leukocytosis 12.82 -No evidence of infection: Afebrile and x-ray negative for pneumonia -Closely monitor Elevation of D-dimer 0.67 -CT angio chest negative for PE -Doppler ultrasound negative for DVT Plan: 1. Patient will be admitted to the ICU 2. Diltiazem 20 mg bolus was given in the ER. Continue diltiazem drip Metoprolol tartrate 12.5 mg twice daily Eliquis 5 mg twice daily 3. Trending troponin. Aspirin and Lipitor 4. Patient received contrast in the ER for CT angio chest. I will continue low-dose IV fluid. I will start Lasix 20 mg IV twice daily tomorrow 5. DVT prophylaxis: Eliquis 6. CODE STATUS DNR/DNI. Deposition PT OT - Mortality Measure Prognosis:: Good
--- NOTE | 2021-01-31 14:21 | PCM.SN.2 ---
- Free Text/Narrative Note: I explained CPR and intubation at length to patient who declined CPR and intubation. He would like to go "naturally".
[2021-01-31] MEDS ORDERED: Metoprolol Tartrate 25 MG Tab PO ONE (15:00)
[2021-01-31] MEDS: Insulin Lispro 100 UNIT/ML 10 ML Vial SUBCUT SCH ×2 (16:57→21:07)
[2021-01-31] MEDS: Insulin Glarg,Human.Rec.Analog 100 Unit/ML SUBCUT SCH (16:57)
[2021-01-31] MEDS: Aspirin 81 MG Tab.EC PO SCH (16:59)
[2021-01-31] MEDS: LIRAGLUTIDE 18 MG/3 ML SQ SCH (18:34)
[2021-01-31] MEDS: atorvaSTATin 20 MG Tab PO SCH (20:11)
[2021-01-31] MEDS: Apixaban 5 MG Tab PO SCH (20:11)
[2021-01-31] MEDS: Metoprolol Tartrate 25 MG Tab PO SCH (20:12)
[2021-01-31] MEDS: Metoprolol Tartrate 5 MG/5 ML SDV IVPUSH PRN (22:06)
[2021-01-31] MEDS ORDERED: Metoprolol Tartrate 5 MG/5 ML SDV IVPUSH PRN (23:32)
[2021-02-01] MEDS: Metoprolol Tartrate 5 MG/5 ML SDV IVPUSH PRN (00:03)
[2021-02-01] MEDS: Diltiazem 100 MG in Sodium Chloride 0.9% 100 ML IV SCH ×3 (01:53→22:59)
[2021-02-01] MEDS ORDERED: Metoprolol Tartrate 25 MG Tab PO SCH (06:00)
[2021-02-01] MEDS: Insulin Lispro 100 UNIT/ML 10 ML Vial SUBCUT SCH ×4 (06:53→21:49)
[2021-02-01 07:40] LABS: HEMOGLOBIN A1C 8.3 %
[2021-02-01] MEDS: Insulin Glarg,Human.Rec.Analog 100 Unit/ML SUBCUT SCH (07:59)
[2021-02-01] MEDS: Aspirin 81 MG Tab.EC PO SCH (07:59)
[2021-02-01] MEDS: Apixaban 5 MG Tab PO SCH ×2 (07:59→20:18)
[2021-02-01] MEDS: Metoprolol Tartrate 25 MG Tab PO SCH (07:59)
[2021-02-01] MEDS: LIRAGLUTIDE 18 MG/3 ML SQ SCH (08:07)
[2021-02-01] MEDS ORDERED: Furosemide 20 MG/2 ML VIAL IVPUSH SCH (09:00)
[2021-02-01] MEDS ORDERED: Metoprolol Tartrate 25 MG Tab PO ONE (10:00)
--- NOTE | 2021-02-01 11:50 | PCM.PN ---
- General Info Date of Service: 02/01/21 Admission Dx/Problem (Free Text): Admission Diagnosis/Problem Admission Diagnosis/Problem Afib, Atrial fibrillation Subjective Update: Patient is a 65-year-old male with a history of diabetes, atrial fibrillation, and hypertension who presented to the ER due to shortness of breath and chest pain for 4 days. Patient feels better, less shortness of breath. No longer has chest pain. Denies nausea, vomiting, headache, or fever chills. His heart rate was not controlled in the early this morning. After increase his medication, his heart rate is better now He is now on 1 L. He is not on home oxygen. WBC 11.01, hemoglobin 12.3 A1c 8.3 Troponin 0.020 Creatinine 1.1 Mag 1.9 phos 3.0 - Review of Systems Systems Review Comment:: General: Reports: No Symptoms HEENT: Reports: No Symptoms Pulmonary: Reports: Shortness of Breath Cardiovascular: Reports: Chest Pain Gastrointestinal: Reports: No Symptoms Genitourinary: Reports: No Symptoms Musculoskeletal: Reports: No Symptoms Skin: Reports: No Symptoms Psychiatric: Reports: No Symptoms Neurological: Reports: Dizziness Hematologic/Lymphatic: Reports: No Symptoms Immunologic: Reports: No Symptoms - Patient Data Vitals - Most Recent: Last Vital Signs Temp 36.1 C 02/01/21 07:49 Pulse 80 02/01/21 10:20 Resp 16 02/01/21 07:49 BP 110/64 02/01/21 10:20 Pulse Ox 92 L 02/01/21 07:49 Weight - Most Recent: 96.252 kg I&O - Last 24 Hours: Intake & Output 01/31/21 02/01/21 02/01/21 22:59 06:59 14:59 Intake Total 220 992 Output Total 850 Balance 220 142 Lab Results Last 24 Hours: Laboratory Results - last 24 hr 01/31/21 01/31/21 01/31/21 Range/Units 13:19 13:19 16:43 WBC (4.23-9.07) K/mm3 RBC (4.63-6.08) M/mm3 Hgb (13.7-17.5) gm/dl Hct (40.1-51.0) % MCV (79.0-92.2) fl MCH (25.7-32.2) pg MCHC (32.2-35.5) g/dl RDW Std Deviation (35.1-43.9) fL Plt Count (163-337) K/mm3 MPV (9.4-12.3) fl Neut % (Auto) (34.0-67.9) % Lymph % (Auto) (21.8-53.1) % [place] % (Auto) (5.3-12.2) % Eos % (Auto) (0.8-7.0) Baso % (Auto) (0.1-1.2) % Neut # (Auto) (1.78-5.38) K/mm3 Lymph # (Auto) (1.32-3.57) K/mm3 [place] # (Auto) (0.30-0.82) K/mm3 Eos # (Auto) (0.04-0.54) K/mm3 Baso # (Auto) (0.01-0.08) K/mm3 PT 11.2 (9.7-12.0) SECONDS INR 1.05 APTT 27.0 (21.7-31.4) SECONDS Sodium (136-145) mEq/L Potassium (3.5-5.1) mEq/L Chloride (98-107) mEq/L Carbon Dioxide (21-32) mEq/L Anion Gap (5-15) BUN (7-18) mg/dL Creatinine (0.7-1.3) mg/dL Est Cr Clr Drug Dosing mL/min Estimated GFR (MDRD) (>60) mL/min BUN/Creatinine Ratio (14-18) Glucose (70-99) mg/dL POC Glucose 194 H (70-99) mg/dL Hemoglobin A1c ( - 5.6) % Calcium (8.5-10.1) mg/dL Phosphorus 3.0 (2.6-4.7) mg/dL Magnesium 1.9 (1.8-2.4) mg/dL Total Bilirubin (0.2-1.0) mg/dL AST (15-37) U/L ALT (16-63) U/L Alkaline Phosphatase (46-116) U/L Troponin I < 0.017 (0.00-0.056) ng/mL Total Protein (6.4-8.2) g/dl Albumin (3.4-5.0) g/dl Globulin gm/dL Albumin/Globulin Ratio (1-2) Urine Color (Yellow) Urine Appearance (Clear) Urine pH (5.0-8.0) Ur Specific [place] (1.005-1.030) Urine Protein (Negative) Urine Glucose (UA) (Negative) Urine Ketones (Negative) Urine Occult Blood (Negative) Urine Nitrite (Negative) Urine Bilirubin (Negative) Urine Urobilinogen (0.2-1.0) Ur Leukocyte Esterase (Negative) Urine RBC (0-5) /hpf Urine WBC (0-5) /hpf Ur Squamous Epith Cells (0-5) /hpf Urine Bacteria (FEW) /hpf Urine Mucus (FEW) /hpf 01/31/21 01/31/21 01/31/21 Range/Units 18:59 20:18 21:10 WBC (4.23-9.07) K/mm3 RBC (4.63-6.08) M/mm3 Hgb (13.7-17.5) gm/dl Hct (40.1-51.0) % MCV (79.0-92.2) fl MCH (25.7-32.2) pg MCHC (32.2-35.5) g/dl RDW Std Deviation (35.1-43.9) fL Plt Count (163-337) K/mm3 MPV (9.4-12.3) fl Neut % (Auto) (34.0-67.9) % Lymph % (Auto) (21.8-53.1) % [place] % (Auto) (5.3-12.2) % Eos % (Auto) (0.8-7.0) Baso % (Auto) (0.1-1.2) % Neut # (Auto) (1.78-5.38) K/mm3 Lymph # (Auto) (1.32-3.57) K/mm3 [place] # (Auto) (0.30-0.82) K/mm3 Eos # (Auto) (0.04-0.54) K/mm3 Baso # (Auto) (0.01-0.08) K/mm3 PT (9.7-12.0) SECONDS INR APTT (21.7-31.4) SECONDS Sodium (136-145) mEq/L Potassium (3.5-5.1) mEq/L Chloride (98-107) mEq/L Carbon Dioxide (21-32) mEq/L Anion Gap (5-15) BUN (7-18) mg/dL Creatinine (0.7-1.3) mg/dL Est Cr Clr Drug Dosing mL/min Estimated GFR (MDRD) (>60) mL/min BUN/Creatinine Ratio (14-18) Glucose (70-99) mg/dL POC Glucose 227 H (70-99) mg/dL Hemoglobin A1c ( - 5.6) % Calcium (8.5-10.1) mg/dL Phosphorus (2.6-4.7) mg/dL Magnesium (1.8-2.4) mg/dL Total Bilirubin (0.2-1.0) mg/dL AST (15-37) U/L ALT (16-63) U/L Alkaline Phosphatase (46-116) U/L Troponin I 0.020 (0.00-0.056) ng/mL Total Protein (6.4-8.2) g/dl Albumin (3.4-5.0) g/dl Globulin gm/dL Albumin/Globulin Ratio (1-2) Urine Color Yellow (Yellow) Urine Appearance Clear (Clear) Urine pH 6.0 (5.0-8.0) Ur Specific [place] 1.025 (1.005-1.030) Urine Protein 3+ H (Negative) Urine Glucose (UA) 1+ H (Negative) Urine Ketones Negative (Negative) Urine Occult Blood 1+ H (Negative) Urine Nitrite Negative (Negative) Urine Bilirubin Negative (Negative) Urine Urobilinogen 0.2 (0.2-1.0) Ur Leukocyte Esterase Negative (Negative) Urine RBC 5-10 H (0-5) /hpf Urine WBC 0-5 (0-5) /hpf Ur Squamous Epith Cells 0-5 (0-5) /hpf Urine Bacteria Occasional (FEW) /hpf Urine Mucus Not seen (FEW) /hpf 02/01/21 02/01/21 02/01/21 Range/Units 05:44 05:44 05:44 WBC 11.01 H (4.23-9.07) K/mm3 RBC 3.89 L (4.63-6.08) M/mm3 Hgb 12.3 L D (13.7-17.5) gm/dl Hct 36.5 L (40.1-51.0) % MCV 93.8 H (79.0-92.2) fl MCH 31.6 (25.7-32.2) pg MCHC 33.7 (32.2-35.5) g/dl RDW Std Deviation 43.0 (35.1-43.9) fL Plt Count 235 (163-337) K/mm3 MPV 12.4 H (9.4-12.3) fl Neut % (Auto) 65.6 (34.0-67.9) % Lymph % (Auto) 25.0 (21.8-53.1) % [place] % (Auto) 7.4 (5.3-12.2) % Eos % (Auto) 1.4 (0.8-7.0) Baso % (Auto) 0.5 (0.1-1.2) % Neut # (Auto) 7.22 H (1.78-5.38) K/mm3 Lymph # (Auto) 2.75 (1.32-3.57) K/mm3 [place] # (Auto) 0.82 (0.30-0.82) K/mm3 Eos # (Auto) 0.15 (0.04-0.54) K/mm3 Baso # (Auto) 0.06 (0.01-0.08) K/mm3 PT (9.7-12.0) SECONDS INR APTT (21.7-31.4) SECONDS Sodium 140 (136-145) mEq/L Potassium 4.0 (3.5-5.1) mEq/L Chloride 105 (98-107) mEq/L Carbon Dioxide 26 (21-32) mEq/L Anion Gap 13.0 (5-15) BUN 26 H (7-18) mg/dL Creatinine 1.1 (0.7-1.3) mg/dL Est Cr Clr Drug Dosing 69.13 mL/min Estimated GFR (MDRD) > 60 (>60) mL/min BUN/Creatinine Ratio 23.6 H (14-18) Glucose 150 H (70-99) mg/dL POC Glucose (70-99) mg/dL Hemoglobin A1c 8.3 H ( - 5.6) % Calcium 7.8 L (8.5-10.1) mg/dL Phosphorus (2.6-4.7) mg/dL Magnesium (1.8-2.4) mg/dL Total Bilirubin 0.6 (0.2-1.0) mg/dL AST 12 L (15-37) U/L ALT 23 (16-63) U/L Alkaline Phosphatase 62 (46-116) U/L Troponin I (0.00-0.056) ng/mL Total Protein 5.8 L (6.4-8.2) g/dl Albumin 2.8 L (3.4-5.0) g/dl Globulin 3.0 gm/dL Albumin/Globulin Ratio 0.9 L (1-2) Urine Color (Yellow) Urine Appearance (Clear) Urine pH (5.0-8.0) Ur Specific [place] (1.005-1.030) Urine Protein (Negative) Urine Glucose (UA) (Negative) Urine Ketones (Negative) Urine Occult Blood (Negative) Urine Nitrite (Negative) Urine Bilirubin (Negative) Urine Urobilinogen (0.2-1.0) Ur Leukocyte Esterase (Negative) Urine RBC (0-5) /hpf Urine WBC (0-5) /hpf Ur Squamous Epith Cells (0-5) /hpf Urine Bacteria (FEW) /hpf Urine Mucus (FEW) /hpf 02/01/21 02/01/21 Range/Units 06:09 11:14 WBC (4.23-9.07) K/mm3 RBC (4.63-6.08) M/mm3 Hgb (13.7-17.5) gm/dl Hct (40.1-51.0) % MCV (79.0-92.2) fl MCH (25.7-32.2) pg MCHC (32.2-35.5) g/dl RDW Std Deviation (35.1-43.9) fL Plt Count (163-337) K/mm3 MPV (9.4-12.3) fl Neut % (Auto) (34.0-67.9) % Lymph % (Auto) (21.8-53.1) % [place] % (Auto) (5.3-12.2) % Eos % (Auto) (0.8-7.0) Baso % (Auto) (0.1-1.2) % Neut # (Auto) (1.78-5.38) K/mm3 Lymph # (Auto) (1.32-3.57) K/mm3 [place] # (Auto) (0.30-0.82) K/mm3 Eos # (Auto) (0.04-0.54) K/mm3 Baso # (Auto) (0.01-0.08) K/mm3 PT (9.7-12.0) SECONDS INR APTT (21.7-31.4) SECONDS Sodium (136-145) mEq/L Potassium (3.5-5.1) mEq/L Chloride (98-107) mEq/L Carbon Dioxide (21-32) mEq/L Anion Gap (5-15) BUN (7-18) mg/dL Creatinine (0.7-1.3) mg/dL Est Cr Clr Drug Dosing mL/min Estimated GFR (MDRD) (>60) mL/min BUN/Creatinine Ratio (14-18) Glucose (70-99) mg/dL POC Glucose 152 H 175 H (70-99) mg/dL Hemoglobin A1c ( - 5.6) % Calcium (8.5-10.1) mg/dL Phosphorus (2.6-4.7) mg/dL Magnesium (1.8-2.4) mg/dL Total Bilirubin (0.2-1.0) mg/dL AST (15-37) U/L ALT (16-63) U/L Alkaline Phosphatase (46-116) U/L Troponin I (0.00-0.056) ng/mL Total Protein (6.4-8.2) g/dl Albumin (3.4-5.0) g/dl Globulin gm/dL Albumin/Globulin Ratio (1-2) Urine Color (Yellow) Urine Appearance (Clear) Urine pH (5.0-8.0) Ur Specific [place] (1.005-1.030) Urine Protein (Negative) Urine Glucose (UA) (Negative) Urine Ketones (Negative) Urine Occult Blood (Negative) Urine Nitrite (Negative) Urine Bilirubin (Negative) Urine Urobilinogen (0.2-1.0) Ur Leukocyte Esterase (Negative) Urine RBC (0-5) /hpf Urine WBC (0-5) /hpf Ur Squamous Epith Cells (0-5) /hpf Urine Bacteria (FEW) /hpf Urine Mucus (FEW) /hpf Med Orders - Current: Current Medications Acetaminophen (Acetaminophen 325 Mg Tab) 650 mg PO Q6H PRN PRN Reason: Pain (Mild 1-3)/fever Hydrocodone Bitart/Acetaminophen (Acetaminophen/Hydrocodone 325-5 Mg Tab) 1 tab PO Q6H PRN PRN Reason: Pain (moderate 4-6) Albuterol/Ipratropium (Albuterol/Ipratropium 3.0-0.5 Mg/3 Ml Neb Soln) 3 ml NEB Q4H PRN PRN Reason: Shortness Of Breath/wheezing Apixaban (Apixaban 5 Mg Tab) 5 mg PO BID [facility] Last Admin: 02/01/21 07:59 Dose: 5 mg Documented by: Aspirin (Aspirin 81 Mg Tab.Ec) 81 mg PO DAILY [facility] Last Admin: 02/01/21 07:59 Dose: 81 mg Documented by: Atorvastatin Calcium (Atorvastatin 20 Mg Tab) 20 mg PO BEDTIME [facility] Last Admin: 01/31/21 20:11 Dose: 20 mg Documented by: Promethazine HCl 12.5 mg/ (Sodium Chloride) 50.5 mls @ 100 mls/hr IV Q6H PRN PRN Reason: Nausea/Vomiting Diltiazem HCl 100 mg/ Sodium (Chloride) 100 mls @ 5 mls/hr IV TITRATE [facility]; Protocol Last Titration: 02/01/21 10:15 Dose: 10 mg/hr, 10 mls/hr Documented by: Insulin Glargine (Insulin Glarg,Human.Rec.Analog 100 Unit/Ml) 10 unit SUBCUT DAILY [facility] Last Admin: 02/01/21 07:59 Dose: 10 unit Documented by: Insulin Human Lispro (Insulin Lispro 100 Unit/Ml 10 Ml Vial) 0 unit SUBCUT QIDACANDBED [facility]; Protocol Last Admin: 02/01/21 06:53 Dose: 2 unit Documented by: Lorazepam (Lorazepam 2 Mg/Ml Sdv) 0.5 mg IV Q6H PRN PRN Reason: Agitation Metoprolol Tartrate (Metoprolol Tartrate 50 Mg Tab) 50 mg PO Q12H [facility] Morphine Sulfate (Morphine 2 Mg/Ml Syringe) 2 mg IVPUSH Q4H PRN PRN Reason: Pain (severe 7-10) Stop: 02/01/21 13:01 Liraglutide [Victoza ] 18 Mg/3 Ml Pen Ptom 1.8 ml SQ DAILY [facility] Last Admin: 02/01/21 08:07 Dose: Not Given Documented by: Sodium Chloride (Sodium Chloride 0.9% 10 Ml Syringe) 10 ml FLUSH ASDIRECTED PRN PRN Reason: Keep Vein Open Last Admin: 01/31/21 09:11 Dose: 10 ml Documented by: Discontinued Medications Apixaban (Apixaban 5 Mg Tab) 5 mg PO ONETIME ONE Stop: 01/31/21 09:07 Last Admin: 01/31/21 09:15 Dose: 5 mg Documented by: Diltiazem HCl (Diltiazem 50 Mg/10 Ml Sdv) 20 mg IVPUSH ONETIME ONE Stop: 01/31/21 09:07 Last Admin: 01/31/21 09:19 Dose: 10 mg Documented by: Diltiazem HCl (Diltiazem 50 Mg/10 Ml Sdv) Confirm Administered Dose 50 mg .ROUTE .STK-MED ONE Stop: 01/31/21 09:07 Last Admin: 01/31/21 09:11 Dose: Not Given Documented by: Furosemide (Furosemide 40 Mg/4 Ml Vial) 40 mg IVPUSH NOW ONE Stop: 01/31/21 10:13 Last Admin: 01/31/21 10:35 Dose: 40 mg Documented by: Furosemide (Furosemide 20 Mg/2 Ml Vial) 20 mg IVPUSH BID [facility] Last Admin: 02/01/21 07:59 Dose: 20 mg Documented by: Heparin Sodium (Porcine) (Heparin Sodium 5,000 Units/Ml Vial) 5,000 units SUBCUT Q8H [facility] Last Admin: 01/31/21 18:35 Dose: Not Given Documented by: Diltiazem HCl 100 mg/ Sodium (Chloride) 100 mls @ 5 mls/hr IV TITRATE [facility]; Protocol Last Titration: 01/31/21 14:41 Dose: 15 mg/hr, 15 mls/hr Documented by: Sodium Chloride (Normal Saline) 500 mls @ 250 mls/hr IV .BOLUS ONE Stop: 01/31/21 13:37 Last Admin: 01/31/21 11:51 Dose: 250 mls/hr Documented by: Sodium Chloride (Normal Saline) 100 mls @ 75 mls/hr IV ASDIRECTED [facility] Last Admin: 01/31/21 12:43 Dose: 75 mls/hr Documented by: Iopamidol (Iopamidol 755 Mg/Ml 100 Ml Bottle) 100 ml IVPUSH ONETIME ONE Stop: 01/31/21 11:43 Last Admin: 01/31/21 12:42 Dose: 100 ml Documented by: Metoprolol Tartrate (Metoprolol Tartrate 25 Mg Tab) 12.5 mg PO Q12H [facility] Metoprolol Tartrate (Metoprolol Tartrate 25 Mg Tab) 12.5 mg PO ONETIME ONE Stop: 01/31/21 15:01 Last Admin: 01/31/21 16:59 Dose: 12.5 mg Documented by: Metoprolol Tartrate (Metoprolol Tartrate 25 Mg Tab) 25 mg PO Q12H [facility] Last Admin: 02/01/21 07:59 Dose: 25 mg Documented by: Metoprolol Tartrate (Metoprolol Tartrate 5 Mg/5 Ml Sdv) 5 mg IVPUSH ONETIME PRN PRN Reason: Other Last Admin: 02/01/21 00:03 Dose: 5 mg Documented by: Metoprolol Tartrate (Metoprolol Tartrate 5 Mg/5 Ml Sdv) 5 mg IVPUSH ONETIME PRN PRN Reason: Other Metoprolol Tartrate (Metoprolol Tartrate 25 Mg Tab) 25 mg PO ONETIME ONE Stop: 02/01/21 10:01 Last Admin: 02/01/21 10:20 Dose: 25 mg Documented by: Sodium Chloride (Sodium Chloride 0.9% 10 Ml Syringe) 10 ml FLUSH ONETIME PRN PRN Reason: IV FLUSH Last Admin: 01/31/21 12:43 Dose: 10 ml Documented by: - Exam Physical Findings Comments:: General: Alert, Oriented, Cooperative HEENT: Conjunctiva Clear, EOMI, Pupils Equal, Pupils Reactive Neck: Supple, Full Range of Motion Lungs: Clear to Auscultation, Normal Respiratory Effort Cardiovascular: Irregular Rhythm GI/Abdominal Exam: Normal Bowel Sounds, Soft, Non-Tender, No Organomegaly Extremities: Normal Inspection, Normal Range of Motion, Non-Tender, Pedal Edema (1+) (improved) Skin: Warm, Dry, Intact Neurological: Strength Equal Bilateral, Normal Speech, Normal Tone, Sensation I ntact Neuro Extensive - Mental Status: Alert, Oriented x3, Normal Mood/Affect Psychiatric: Normal Affect, Normal Mood - Patient Data Lab Results Last 24 hrs: Laboratory Results - last 24 hr 01/31/21 01/31/21 01/31/21 Range/Units 13:19 13:19 16:43 WBC (4.23-9.07) K/mm3 RBC (4.63-6.08) M/mm3 Hgb (13.7-17.5) gm/dl Hct (40.1-51.0) % MCV (79.0-92.2) fl MCH (25.7-32.2) pg MCHC (32.2-35.5) g/dl RDW Std Deviation (35.1-43.9) fL Plt Count (163-337) K/mm3 MPV (9.4-12.3) fl Neut % (Auto) (34.0-67.9) % Lymph % (Auto) (21.8-53.1) % [place] % (Auto) (5.3-12.2) % Eos % (Auto) (0.8-7.0) Baso % (Auto) (0.1-1.2) % Neut # (Auto) (1.78-5.38) K/mm3 Lymph # (Auto) (1.32-3.57) K/mm3 [place] # (Auto) (0.30-0.82) K/mm3 Eos # (Auto) (0.04-0.54) K/mm3 Baso # (Auto) (0.01-0.08) K/mm3 PT 11.2 (9.7-12.0) SECONDS INR 1.05 APTT 27.0 (21.7-31.4) SECONDS Sodium (136-145) mEq/L Potassium (3.5-5.1) mEq/L Chloride (98-107) mEq/L Carbon Dioxide (21-32) mEq/L Anion Gap (5-15) BUN (7-18) mg/dL Creatinine (0.7-1.3) mg/dL Est Cr Clr Drug Dosing mL/min Estimated GFR (MDRD) (>60) mL/min BUN/Creatinine Ratio (14-18) Glucose (70-99) mg/dL POC Glucose 194 H (70-99) mg/dL Hemoglobin A1c ( - 5.6) % Calcium (8.5-10.1) mg/dL Phosphorus 3.0 (2.6-4.7) mg/dL Magnesium 1.9 (1.8-2.4) mg/dL Total Bilirubin (0.2-1.0) mg/dL AST (15-37) U/L ALT (16-63) U/L Alkaline Phosphatase (46-116) U/L Troponin I < 0.017 (0.00-0.056) ng/mL Total Protein (6.4-8.2) g/dl Albumin (3.4-5.0) g/dl Globulin gm/dL Albumin/Globulin Ratio (1-2) Urine Color (Yellow) Urine Appearance (Clear) Urine pH (5.0-8.0) Ur Specific [place] (1.005-1.030) Urine Protein (Negative) Urine Glucose (UA) (Negative) Urine Ketones (Negative) Urine Occult Blood (Negative) Urine Nitrite (Negative) Urine Bilirubin (Negative) Urine Urobilinogen (0.2-1.0) Ur Leukocyte Esterase (Negative) Urine RBC (0-5) /hpf Urine WBC (0-5) /hpf Ur Squamous Epith Cells (0-5) /hpf Urine Bacteria (FEW) /hpf Urine Mucus (FEW) /hpf 01/31/21 01/31/21 01/31/21 Range/Units 18:59 20:18 21:10 WBC (4.23-9.07) K/mm3 RBC (4.63-6.08) M/mm3 Hgb (13.7-17.5) gm/dl Hct (40.1-51.0) % MCV (79.0-92.2) fl MCH (25.7-32.2) pg MCHC (32.2-35.5) g/dl RDW Std Deviation (35.1-43.9) fL Plt Count (163-337) K/mm3 MPV (9.4-12.3) fl Neut % (Auto) (34.0-67.9) % Lymph % (Auto) (21.8-53.1) % [place] % (Auto) (5.3-12.2) % Eos % (Auto) (0.8-7.0) Baso % (Auto) (0.1-1.2) % Neut # (Auto) (1.78-5.38) K/mm3 Lymph # (Auto) (1.32-3.57) K/mm3 [place] # (Auto) (0.30-0.82) K/mm3 Eos # (Auto) (0.04-0.54) K/mm3 Baso # (Auto) (0.01-0.08) K/mm3 PT (9.7-12.0) SECONDS INR APTT (21.7-31.4) SECONDS Sodium (136-145) mEq/L Potassium (3.5-5.1) mEq/L Chloride (98-107) mEq/L Carbon Dioxide (21-32) mEq/L Anion Gap (5-15) BUN (7-18) mg/dL Creatinine (0.7-1.3) mg/dL Est Cr Clr Drug Dosing mL/min Estimated GFR (MDRD) (>60) mL/min BUN/Creatinine Ratio (14-18) Glucose (70-99) mg/dL POC Glucose 227 H (70-99) mg/dL Hemoglobin A1c ( - 5.6) % Calcium (8.5-10.1) mg/dL Phosphorus (2.6-4.7) mg/dL Magnesium (1.8-2.4) mg/dL Total Bilirubin (0.2-1.0) mg/dL AST (15-37) U/L ALT (16-63) U/L Alkaline Phosphatase (46-116) U/L Troponin I 0.020 (0.00-0.056) ng/mL Total Protein (6.4-8.2) g/dl Albumin (3.4-5.0) g/dl Globulin gm/dL Albumin/Globulin Ratio (1-2) Urine Color Yellow (Yellow) Urine Appearance Clear (Clear) Urine pH 6.0 (5.0-8.0) Ur Specific [place] 1.025 (1.005-1.030) Urine Protein 3+ H (Negative) Urine Glucose (UA) 1+ H (Negative) Urine Ketones Negative (Negative) Urine Occult Blood 1+ H (Negative) Urine Nitrite Negative (Negative) Urine Bilirubin Negative (Negative) Urine Urobilinogen 0.2 (0.2-1.0) Ur Leukocyte Esterase Negative (Negative) Urine RBC 5-10 H (0-5) /hpf Urine WBC 0-5 (0-5) /hpf Ur Squamous Epith Cells 0-5 (0-5) /hpf Urine Bacteria Occasional (FEW) /hpf Urine Mucus Not seen (FEW) /hpf 02/01/21 02/01/21 02/01/21 Range/Units 05:44 05:44 05:44 WBC 11.01 H (4.23-9.07) K/mm3 RBC 3.89 L (4.63-6.08) M/mm3 Hgb 12.3 L D (13.7-17.5) gm/dl Hct 36.5 L (40.1-51.0) % MCV 93.8 H (79.0-92.2) fl MCH 31.6 (25.7-32.2) pg MCHC 33.7 (32.2-35.5) g/dl RDW Std Deviation 43.0 (35.1-43.9) fL Plt Count 235 (163-337) K/mm3 MPV 12.4 H (9.4-12.3) fl Neut % (Auto) 65.6 (34.0-67.9) % Lymph % (Auto) 25.0 (21.8-53.1) % [place] % (Auto) 7.4 (5.3-12.2) % Eos % (Auto) 1.4 (0.8-7.0) Baso % (Auto) 0.5 (0.1-1.2) % Neut # (Auto) 7.22 H (1.78-5.38) K/mm3 Lymph # (Auto) 2.75 (1.32-3.57) K/mm3 [place] # (Auto) 0.82 (0.30-0.82) K/mm3 Eos # (Auto) 0.15 (0.04-0.54) K/mm3 Baso # (Auto) 0.06 (0.01-0.08) K/mm3 PT (9.7-12.0) SECONDS INR APTT (21.7-31.4) SECONDS Sodium 140 (136-145) mEq/L Potassium 4.0 (3.5-5.1) mEq/L Chloride 105 (98-107) mEq/L Carbon Dioxide 26 (21-32) mEq/L Anion Gap 13.0 (5-15) BUN 26 H (7-18) mg/dL Creatinine 1.1 (0.7-1.3) mg/dL Est Cr Clr Drug Dosing 69.13 mL/min Estimated GFR (MDRD) > 60 (>60) mL/min BUN/Creatinine Ratio 23.6 H (14-18) Glucose 150 H (70-99) mg/dL POC Glucose (70-99) mg/dL Hemoglobin A1c 8.3 H ( - 5.6) % Calcium 7.8 L (8.5-10.1) mg/dL Phosphorus (2.6-4.7) mg/dL Magnesium (1.8-2.4) mg/dL Total Bilirubin 0.6 (0.2-1.0) mg/dL AST 12 L (15-37) U/L ALT 23 (16-63) U/L Alkaline Phosphatase 62 (46-116) U/L Troponin I (0.00-0.056) ng/mL Total Protein 5.8 L (6.4-8.2) g/dl Albumin 2.8 L (3.4-5.0) g/dl Globulin 3.0 gm/dL Albumin/Globulin Ratio 0.9 L (1-2) Urine Color (Yellow) Urine Appearance (Clear) Urine pH (5.0-8.0) Ur Specific [place] (1.005-1.030) Urine Protein (Negative) Urine Glucose (UA) (Negative) Urine Ketones (Negative) Urine Occult Blood (Negative) Urine Nitrite (Negative) Urine Bilirubin (Negative) Urine Urobilinogen (0.2-1.0) Ur Leukocyte Esterase (Negative) Urine RBC (0-5) /hpf Urine WBC (0-5) /hpf Ur Squamous Epith Cells (0-5) /hpf Urine Bacteria (FEW) /hpf Urine Mucus (FEW) /hpf 02/01/21 02/01/21 Range/Units 06:09 11:14 WBC (4.23-9.07) K/mm3 RBC (4.63-6.08) M/mm3 Hgb (13.7-17.5) gm/dl Hct (40.1-51.0) % MCV (79.0-92.2) fl MCH (25.7-32.2) pg MCHC (32.2-35.5) g/dl RDW Std Deviation (35.1-43.9) fL Plt Count (163-337) K/mm3 MPV (9.4-12.3) fl Neut % (Auto) (34.0-67.9) % Lymph % (Auto) (21.8-53.1) % [place] % (Auto) (5.3-12.2) % Eos % (Auto) (0.8-7.0) Baso % (Auto) (0.1-1.2) % Neut # (Auto) (1.78-5.38) K/mm3 Lymph # (Auto) (1.32-3.57) K/mm3 [place] # (Auto) (0.30-0.82) K/mm3 Eos # (Auto) (0.04-0.54) K/mm3 Baso # (Auto) (0.01-0.08) K/mm3 PT (9.7-12.0) SECONDS INR APTT (21.7-31.4) SECONDS Sodium (136-145) mEq/L Potassium (3.5-5.1) mEq/L Chloride (98-107) mEq/L Carbon Dioxide (21-32) mEq/L Anion Gap (5-15) BUN (7-18) mg/dL Creatinine (0.7-1.3) mg/dL Est Cr Clr Drug Dosing mL/min Estimated GFR (MDRD) (>60) mL/min BUN/Creatinine Ratio (14-18) Glucose (70-99) mg/dL POC Glucose 152 H 175 H (70-99) mg/dL Hemoglobin A1c ( - 5.6) % Calcium (8.5-10.1) mg/dL Phosphorus (2.6-4.7) mg/dL Magnesium (1.8-2.4) mg/dL Total Bilirubin (0.2-1.0) mg/dL AST (15-37) U/L ALT (16-63) U/L Alkaline Phosphatase (46-116) U/L Troponin I (0.00-0.056) ng/mL Total Protein (6.4-8.2) g/dl Albumin (3.4-5.0) g/dl Globulin gm/dL Albumin/Globulin Ratio (1-2) Urine Color (Yellow) Urine Appearance (Clear) Urine pH (5.0-8.0) Ur Specific [place] (1.005-1.030) Urine Protein (Negative) Urine Glucose (UA) (Negative) Urine Ketones (Negative) Urine Occult Blood (Negative) Urine Nitrite (Negative) Urine Bilirubin (Negative) Urine Urobilinogen (0.2-1.0) Ur Leukocyte Esterase (Negative) Urine RBC (0-5) /hpf Urine WBC (0-5) /hpf Ur Squamous Epith Cells (0-5) /hpf Urine Bacteria (FEW) /hpf Urine Mucus (FEW) /hpf Result Diagrams: 02/01/21 05:44 02/01/21 05:44 Sepsis Event Note - Evaluation Sepsis Screening Result: No Definite Risk - Focused Exam Vital Signs: Vital Signs Temp Pulse Resp BP BP Pulse Ox Pulse Ox 02/01/21 10:20 80 110/64 02/01/21 07:59 96 102/63 02/01/21 07:49 36.1 C 16 102/63 92 L 02/01/21 07:00 16 96 02/01/21 06:00 15 96 02/01/21 05:41 96 02/01/21 05:00 18 101/73 96 02/01/21 04:00 36.2 C 13 101/63 95 02/01/21 03:00 12 100/73 96 02/01/21 02:00 14 103/62 98 02/01/21 01:00 17 110/95 H 97 02/01/21 00:03 115 H 103/73 02/01/21 00:00 36.0 C L 19 103/73 96 - Problem List Review Problem List Initiated/Reviewed/Updated: Yes - My Orders Last 24 Hours: My Active Orders 01/31/21 Lunch 2 Gram Sodium Diet [DIET] Consistent Carbohydrate Diet [DIET] 01/31/21 12:59 Blood Glucose Check, Bedside [RC] QIDACANDBED Oxygen Therapy [RC] PRN Up to Chair [RC] ASDIRECTED VTE/DVT Education [RC] Vital Signs [RC] Q1H OT Evaluation and Treatment [CONS] Routine PT Evaluation and Treatment [CONS] Routine Respiratory Care Assess and Treatment [CONS] Routine Acetaminophen [TylenoL] 650 mg PO Q6H PRN Acetaminophen/HYDROcodone [[place] 325-5 MG] 1 tab PO Q6H PRN Albuterol/Ipratropium [DuoNeb 3.0-0.5 MG/3 ML] 3 ml NEB Q4H PRN LORazepam [Ativan] 0.5 mg IV Q6H PRN Morphine 2 mg IVPUSH Q4H PRN Promethazine [Phenergan] 12.5 mg Sodium Chloride 0.9% [Normal Saline] 50 ml IV Q6H Glucose Management Sub Q Reflex [OM.PC] Click To Edit 01/31/21 13:00 Cardiac Monitoring [RC] CONTINUOUS Pulse Oximetry [RC] CONTINUOUS 01/31/21 13:01 Diabetes Education [RC] Click to Edit 01/31/21 13:03 RT Aerosol Therapy [RC] ASDIRECTED 01/31/21 13:06 Communication Order [RC] Per Unit Routine Communication Order [RC] Per Unit Routine 01/31/21 13:15 Diltiazem [Cardizem] 100 mg Sodium Chloride 0.9% [Normal Saline] 100 ml IV TITRATE Liraglutide [Victoza] 1.8 ml SQ DAILY 01/31/21 14:21 Code Status [Resuscitation Status] Stat 01/31/21 15:00 Aspirin [Halfprin] 81 mg PO DAILY Insulin Glarg,Human.Rec.Analog [LantUS] 10 unit SUBCUT DAILY 01/31/21 17:00 Insulin Lispro [HumaLOG] See Protocol SUBCUT QIDACANDBED 01/31/21 21:00 Apixaban [Eliquis] 5 mg PO BID atorvaSTATin [Lipitor] 20 mg PO BEDTIME 02/01/21 09:23 Diabetes Education [RC] ASDIRECTED 02/01/21 10:15 Empagliflozin DOSE UNIT RTE FREQ 02/01/21 21:00 Metoprolol Tartrate [Lopressor] 50 mg PO Q12H 02/02/21 05:00 CBC WITH AUTO DIFF [HEME] DAILY COMPREHENSIVE METABOLIC PN,CMP [CHEM] DAILY 02/03/21 05:00 CBC WITH AUTO DIFF [HEME] DAILY COMPREHENSIVE METABOLIC PN,CMP [CHEM] DAILY 02/04/21 05:00 CBC WITH AUTO DIFF [HEME] DAILY COMPREHENSIVE METABOLIC PN,CMP [CHEM] DAILY 02/05/21 05:00 CBC WITH AUTO DIFF [HEME] DAILY COMPREHENSIVE METABOLIC PN,CMP [CHEM] DAILY - Plan Plan:: Patient is a 65-year-old male with a history of diabetes, atrial fibrillation, and hypertension who presented to the ER due to shortness of breath and chest pain for 4 days. Assessment: Acute hypoxic respiratory failure -Etiology could be due to CHF, atrial fibrillation with RVR or cardiac ischemia. D-dimer positive, CT angio chest negative for PE -Not on home oxygen -Pulse ox -Oxygen therapy to keep oxygen saturation greater than 92% Atrial fibrillation with RVR -History of atrial fibrillation with RVR 4 years ago -Not on medication (including blood thinner) for his atrial fibrillation -Was on Eliquis. -Heart rate up to 150 in the ER -Possibly associated with chest pain Chest pain -Etiology unknown. Could be due to demand ischemia due to atrial fibrillation with RVR -EKG no ST elevation -Troponin negative x 3 CHF exacerbation? -BNP 6679 -Type unknown -CXR and CTA chest -cardiomegaly and pulmonary vascular congestion -Echocardiogram pending -Mag 1.9 phos 3.0 DM type II with hyperglycemia -Home medications include lantus 32 units bedtime, victoza and metformin -I would like to order the Lantus 10 units daily and insulin sliding scale. Adjust insulin based on sugar levels -Hemoglobin A1c 8.3 HTN -Not on blood pressure medication -Hydralazine as needed BRENDEN -creatinine 1.9 on 10/25/2015 -Could be due to diabetic nephropathy -Avoid nephrotoxic meds -Creatinine 1.1 today Leukocytosis 12.82 -No evidence of infection: Afebrile and x-ray negative for pneumonia -Closely monitor Elevation of D-dimer 0.67 -CT angio chest negative for PE -Doppler ultrasound negative for DVT Plan: 1. Continue to be monitored in ICU 2. Increased metoprolol to 50 mg twice daily Continue diltiazem drip as needed Continue Eliquis 5 mg twice daily 3. Continue Aspirin and Lipitor 4. Lantus 10 units daily, continue home medication Jardiance. Insulin sliding scale 5. Lasix 20 mg IV daily. Intake and output. Daily weight. Repeat electrolytes and renal function daily 6. DVT prophylaxis: Eliquis 7. CODE STATUS DNR/DNI. Deposition PT OT Possible discharge in 1 or 2 days
[2021-02-01] MEDS: Furosemide 20 MG/2 ML VIAL IVPUSH SCH (13:06)
[2021-02-01] MEDS: Metoprolol Tartrate 50 MG Tab PO SCH (20:18)
[2021-02-01] MEDS: atorvaSTATin 20 MG Tab PO SCH (20:18)
[2021-02-02] MEDS: Furosemide 20 MG/2 ML VIAL IVPUSH SCH (08:22)
[2021-02-02] MEDS: Metoprolol Tartrate 50 MG Tab PO SCH ×2 (08:22→20:27)
[2021-02-02] MEDS: Insulin Lispro 100 UNIT/ML 10 ML Vial SUBCUT SCH ×4 (08:23→21:18)
[2021-02-02] MEDS: Insulin Glarg,Human.Rec.Analog 100 Unit/ML SUBCUT SCH (08:23)
[2021-02-02] MEDS: Apixaban 5 MG Tab PO SCH ×2 (08:23→20:28)
[2021-02-02] MEDS: Aspirin 81 MG Tab.EC PO SCH (08:23)
[2021-02-02] MEDS: LIRAGLUTIDE 18 MG/3 ML SQ SCH (08:24)
[2021-02-02] MEDS: Diltiazem 100 MG in Sodium Chloride 0.9% 100 ML IV SCH ×2 (09:31→21:20)
[2021-02-02] MEDS: Metoprolol Tartrate 25 MG Tab PO SCH ×2 (10:13→20:28)
--- NOTE | 2021-02-02 13:30 | PCM.PN ---
- General Info Date of Service: 02/02/21 Admission Dx/Problem (Free Text): Admission Diagnosis/Problem Admission Diagnosis/Problem Afib, Atrial fibrillation Subjective Update: Patient is a 65-year-old male with a history of diabetes, atrial fibrillation, and hypertension who presented to the ER due to shortness of breath and chest pain for 4 days. Feels he is feeling fine. Does not have any new complaints. No chest pain. Denies nausea, vomiting, headache, or fever chills. His heart rate is better controlled. But he needed diltiazem drip last night. His heart rate is now < 100 He is now on 1 L. He is not on home oxygen. WBC 9.94, hemoglobin 12.7 Creatinine 1.1 - Review of Systems Systems Review Comment:: General: Reports: No Symptoms HEENT: Reports: No Symptoms Pulmonary: Reports: Shortness of Breath Cardiovascular: Reports: Palpitations Gastrointestinal: Reports: No Symptoms Genitourinary: Reports: No Symptoms Musculoskeletal: Reports: No Symptoms Skin: Reports: No Symptoms Psychiatric: Reports: No Symptoms Neurological: Reports: No Symptoms Hematologic/Lymphatic: Reports: No Symptoms Immunologic: Reports: No Symptoms - Patient Data Vitals - Most Recent: Last Vital Signs Temp 36.1 C 02/02/21 11:54 Pulse 82 02/02/21 10:13 Resp 16 02/02/21 11:54 BP 103/77 02/02/21 11:54 Pulse Ox 97 02/02/21 11:54 Weight - Most Recent: 96.797 kg I&O - Last 24 Hours: Intake & Output 02/01/21 02/02/21 02/02/21 22:59 06:59 14:59 Intake Total 1085 328 220 Output Total 1600 725 Balance -515 328 -505 Lab Results Last 24 Hours: Laboratory Results - last 24 hr 02/01/21 02/01/21 02/02/21 Range/Units 17:03 20:21 05:31 WBC 9.94 H (4.23-9.07) K/mm3 RBC 4.02 L (4.63-6.08) M/mm3 Hgb 12.7 L (13.7-17.5) gm/dl Hct 38.0 L (40.1-51.0) % MCV 94.5 H (79.0-92.2) fl MCH 31.6 (25.7-32.2) pg MCHC 33.4 (32.2-35.5) g/dl RDW Std Deviation 43.1 (35.1-43.9) fL Plt Count 234 (163-337) K/mm3 MPV 12.4 H (9.4-12.3) fl Neut % (Auto) 69.3 H (34.0-67.9) % Lymph % (Auto) 20.8 L (21.8-53.1) % Dodge % (Auto) 7.6 (5.3-12.2) % Eos % (Auto) 1.6 (0.8-7.0) Baso % (Auto) 0.5 (0.1-1.2) % Neut # (Auto) 6.88 H (1.78-5.38) K/mm3 Lymph # (Auto) 2.07 (1.32-3.57) K/mm3 Dodge # (Auto) 0.76 (0.30-0.82) K/mm3 Eos # (Auto) 0.16 (0.04-0.54) K/mm3 Baso # (Auto) 0.05 (0.01-0.08) K/mm3 Sodium (136-145) mEq/L Potassium (3.5-5.1) mEq/L Chloride (98-107) mEq/L Carbon Dioxide (21-32) mEq/L Anion Gap (5-15) BUN (7-18) mg/dL Creatinine (0.7-1.3) mg/dL Est Cr Clr Drug Dosing mL/min Estimated GFR (MDRD) (>60) mL/min BUN/Creatinine Ratio (14-18) Glucose (70-99) mg/dL POC Glucose 108 H 299 H (70-99) mg/dL Calcium (8.5-10.1) mg/dL Total Bilirubin (0.2-1.0) mg/dL AST (15-37) U/L ALT (16-63) U/L Alkaline Phosphatase (46-116) U/L Total Protein (6.4-8.2) g/dl Albumin (3.4-5.0) g/dl Globulin gm/dL Albumin/Globulin Ratio (1-2) 05/14/21 05/14/21 05/14/21 Range/Units 05:31 07:17 11:34 WBC (4.23-9.07) K/mm3 RBC (4.63-6.08) M/mm3 Hgb (13.7-17.5) gm/dl Hct (40.1-51.0) % MCV (79.0-92.2) fl MCH (25.7-32.2) pg MCHC (32.2-35.5) g/dl RDW Std Deviation (35.1-43.9) fL Plt Count (163-337) K/mm3 MPV (9.4-12.3) fl Neut % (Auto) (34.0-67.9) % Lymph % (Auto) (21.8-53.1) % Dodge % (Auto) (5.3-12.2) % Eos % (Auto) (0.8-7.0) Baso % (Auto) (0.1-1.2) % Neut # (Auto) (1.78-5.38) K/mm3 Lymph # (Auto) (1.32-3.57) K/mm3 Dodge # (Auto) (0.30-0.82) K/mm3 Eos # (Auto) (0.04-0.54) K/mm3 Baso # (Auto) (0.01-0.08) K/mm3 Sodium 142 (136-145) mEq/L Potassium 3.8 (3.5-5.1) mEq/L Chloride 105 (98-107) mEq/L Carbon Dioxide 25 (21-32) mEq/L Anion Gap 15.8 H (5-15) BUN 24 H (7-18) mg/dL Creatinine 1.1 (0.7-1.3) mg/dL Est Cr Clr Drug Dosing 69.13 mL/min Estimated GFR (MDRD) > 60 (>60) mL/min BUN/Creatinine Ratio 21.8 H (14-18) Glucose 140 H (70-99) mg/dL POC Glucose 149 H 207 H (70-99) mg/dL Calcium 7.9 L (8.5-10.1) mg/dL Total Bilirubin 0.5 (0.2-1.0) mg/dL AST 10 L (15-37) U/L ALT 29 (16-63) U/L Alkaline Phosphatase 65 (46-116) U/L Total Protein 5.9 L (6.4-8.2) g/dl Albumin 2.8 L (3.4-5.0) g/dl Globulin 3.1 gm/dL Albumin/Globulin Ratio 0.9 L (1-2) Med Orders - Current: Current Medications Acetaminophen (Acetaminophen 325 Mg Tab) 650 mg PO Q6H PRN PRN Reason: Pain (Mild 1-3)/fever Hydrocodone Bitart/Acetaminophen (Acetaminophen/Hydrocodone 325-5 Mg Tab) 1 tab PO Q6H PRN PRN Reason: Pain (moderate 4-6) Albuterol/Ipratropium (Albuterol/Ipratropium 3.0-0.5 Mg/3 Ml Neb Soln) 3 ml NEB Q4H PRN PRN Reason: Shortness Of Breath/wheezing Apixaban (Apixaban 5 Mg Tab) 5 mg PO BID [facility] Last Admin: 02/02/21 08:23 Dose: 5 mg Documented by: Aspirin (Aspirin 81 Mg Tab.Ec) 81 mg PO DAILY [facility] Last Admin: 02/02/21 08:23 Dose: 81 mg Documented by: Atorvastatin Calcium (Atorvastatin 20 Mg Tab) 20 mg PO BEDTIME [facility] Last Admin: 02/01/21 20:18 Dose: 20 mg Documented by: Furosemide (Furosemide 20 Mg/2 Ml Vial) 20 mg IVPUSH DAILY [facility] Last Admin: 02/02/21 08:22 Dose: 20 mg Documented by: Promethazine HCl 12.5 mg/ (Sodium Chloride) 50.5 mls @ 100 mls/hr IV Q6H PRN PRN Reason: Nausea/Vomiting Diltiazem HCl 100 mg/ Sodium (Chloride) 100 mls @ 5 mls/hr IV TITRATE RUBEN; Prot ocol Last Admin: 02/02/21 09:31 Dose: 7.5 mg/hr, 7.5 mls/hr Documented by: Insulin Glargine (Insulin Glarg,Human.Rec.Analog 100 Unit/Ml) 10 unit SUBCUT DAILY [facility] Last Admin: 02/02/21 08:23 Dose: 10 unit Documented by: Insulin Human Lispro (Insulin Lispro 100 Unit/Ml 10 Ml Vial) 0 unit SUBCUT QIDACANDBED [facility]; Protocol Last Admin: 02/02/21 11:53 Dose: 4 unit Documented by: Lorazepam (Lorazepam 2 Mg/Ml Sdv) 0.5 mg IV Q6H PRN PRN Reason: Agitation Metoprolol Tartrate (Metoprolol Tartrate 25 Mg Tab) 12.5 mg PO Q12HR [facility] Last Admin: 02/02/21 10:13 Dose: 12.5 mg Documented by: Metoprolol Tartrate (Metoprolol Tartrate 50 Mg Tab) 50 mg PO Q12H [facility] Liraglutide [Victoza ] 18 Mg/3 Ml Pen Ptom 1.8 ml SQ DAILY [facility] Last Admin: 02/02/21 08:24 Dose: Not Given Documented by: Sodium Chloride (Sodium Chloride 0.9% 10 Ml Syringe) 10 ml FLUSH ASDIRECTED PRN PRN Reason: Keep Vein Open Last Admin: 01/31/21 09:11 Dose: 10 ml Documented by: Discontinued Medications Apixaban (Apixaban 5 Mg Tab) 5 mg PO ONETIME ONE Stop: 01/31/21 09:07 Last Admin: 01/31/21 09:15 Dose: 5 mg Documented by: Diltiazem HCl (Diltiazem 50 Mg/10 Ml Sdv) 20 mg IVPUSH ONETIME ONE Stop: 01/31/21 09:07 Last Admin: 01/31/21 09:19 Dose: 10 mg Documented by: Diltiazem HCl (Diltiazem 50 Mg/10 Ml Sdv) Confirm Administered Dose 50 mg .ROUTE .STK-MED ONE Stop: 01/31/21 09:07 Last Admin: 01/31/21 09:11 Dose: Not Given Documented by: Furosemide (Furosemide 40 Mg/4 Ml Vial) 40 mg IVPUSH NOW ONE Stop: 01/31/21 10:13 Last Admin: 01/31/21 10:35 Dose: 40 mg Documented by: Furosemide (Furosemide 20 Mg/2 Ml Vial) 20 mg IVPUSH BID [facility] Last Admin: 02/01/21 07:59 Dose: 20 mg Documented by: Heparin Sodium (Porcine) (Heparin Sodium 5,000 Units/Ml Vial) 5,000 units SUBCUT Q8H [facility] Last Admin: 01/31/21 18:35 Dose: Not Given Documented by: Diltiazem HCl 100 mg/ Sodium (Chloride) 100 mls @ 5 mls/hr IV TITRATE [facility]; Protocol Last Titration: 01/31/21 14:41 Dose: 15 mg/hr, 15 mls/hr Documented by: Sodium Chloride (Normal Saline) 500 mls @ 250 mls/hr IV .BOLUS ONE Stop: 01/31/21 13:37 Last Admin: 01/31/21 11:51 Dose: 250 mls/hr Documented by: Sodium Chloride (Normal Saline) 100 mls @ 75 mls/hr IV ASDIRECTED [facility] Last Admin: 01/31/21 12:43 Dose: 75 mls/hr Documented by: Iopamidol (Iopamidol 755 Mg/Ml 100 Ml Bottle) 100 ml IVPUSH ONETIME ONE Stop: 01/31/21 11:43 Last Admin: 01/31/21 12:42 Dose: 100 ml Documented by: Metoprolol Tartrate (Metoprolol Tartrate 25 Mg Tab) 12.5 mg PO Q12H [facility] Metoprolol Tartrate (Metoprolol Tartrate 25 Mg Tab) 12.5 mg PO ONETIME ONE Stop: 01/31/21 15:01 Last Admin: 01/31/21 16:59 Dose: 12.5 mg Documented by: Metoprolol Tartrate (Metoprolol Tartrate 25 Mg Tab) 25 mg PO Q12H [facility] Last Admin: 02/01/21 07:59 Dose: 25 mg Documented by: Metoprolol Tartrate (Metoprolol Tartrate 5 Mg/5 Ml Sdv) 5 mg IVPUSH ONETIME PRN PRN Reason: Other Last Admin: 02/01/21 00:03 Dose: 5 mg Documented by: Metoprolol Tartrate (Metoprolol Tartrate 5 Mg/5 Ml Sdv) 5 mg IVPUSH ONETIME PRN PRN Reason: Other Metoprolol Tartrate (Metoprolol Tartrate 25 Mg Tab) 25 mg PO ONETIME ONE Stop: 02/01/21 10:01 Last Admin: 02/01/21 10:20 Dose: 25 mg Documented by: Metoprolol Tartrate (Metoprolol Tartrate 50 Mg Tab) 50 mg PO Q12H [facility] Last Admin: 02/02/21 08:22 Dose: 50 mg Documented by: Morphine Sulfate (Morphine 2 Mg/Ml Syringe) 2 mg IVPUSH Q4H PRN PRN Reason: Pain (severe 7-10) Stop: 02/01/21 13:01 Sodium Chloride (Sodium Chloride 0.9% 10 Ml Syringe) 10 ml FLUSH ONETIME PRN PRN Reason: IV FLUSH Last Admin: 01/31/21 12:43 Dose: 10 ml Documented by: - Exam Physical Findings Comments:: General: Alert, Oriented, Cooperative HEENT: Conjunctiva Clear, EOMI, Pupils Equal, Pupils Reactive Neck: Supple, Full Range of Motion Lungs: Decreased Breath Sounds (Lower right lung field and left basal area) Cardiovascular: Irregular Rhythm GI/Abdominal Exam: Normal Bowel Sounds, Soft, Non-Tender, No Organomegaly Extremities: Normal Range of Motion, Non-Tender, Pedal Edema (2+ in both legs until knees)(improved) Skin: Warm, Dry, Intact Neurological: Strength Equal Bilateral, Normal Speech, Normal Tone, Sensation Intact Neuro Extensive - Mental Status: Normal Mood/Affect Psychiatric: Normal Affect, Normal Mood - Patient Data Lab Results Last 24 hrs: Laboratory Results - last 24 hr 02/01/21 02/01/21 02/02/21 Range/Units 17:03 20:21 05:31 WBC 9.94 H (4.23-9.07) K/mm3 RBC 4.02 L (4.63-6.08) M/mm3 Hgb 12.7 L (13.7-17.5) gm/dl Hct 38.0 L (40.1-51.0) % MCV 94.5 H (79.0-92.2) fl MCH 31.6 (25.7-32.2) pg MCHC 33.4 (32.2-35.5) g/dl RDW Std Deviation 43.1 (35.1-43.9) fL Plt Count 234 (163-337) K/mm3 MPV 12.4 H (9.4-12.3) fl Neut % (Auto) 69.3 H (34.0-67.9) % Lymph % (Auto) 20.8 L (21.8-53.1) % Dodge % (Auto) 7.6 (5.3-12.2) % Eos % (Auto) 1.6 (0.8-7.0) Baso % (Auto) 0.5 (0.1-1.2) % Neut # (Auto) 6.88 H (1.78-5.38) K/mm3 Lymph # (Auto) 2.07 (1.32-3.57) K/mm3 [place] # (Auto) 0.76 (0.30-0.82) K/mm3 Eos # (Auto) 0.16 (0.04-0.54) K/mm3 Baso # (Auto) 0.05 (0.01-0.08) K/mm3 Sodium (136-145) mEq/L Potassium (3.5-5.1) mEq/L Chloride (98-107) mEq/L Carbon Dioxide (21-32) mEq/L Anion Gap (5-15) BUN (7-18) mg/dL Creatinine (0.7-1.3) mg/dL Est Cr Clr Drug Dosing mL/min Estimated GFR (MDRD) (>60) mL/min BUN/Creatinine Ratio (14-18) Glucose (70-99) mg/dL POC Glucose 108 H 299 H (70-99) mg/dL Calcium (8.5-10.1) mg/dL Total Bilirubin (0.2-1.0) mg/dL AST (15-37) U/L ALT (16-63) U/L Alkaline Phosphatase (46-116) U/L Total Protein (6.4-8.2) g/dl Albumin (3.4-5.0) g/dl Globulin gm/dL Albumin/Globulin Ratio (1-2) 02/02/21 02/02/21 02/02/21 Range/Units 05:31 07:17 11:34 WBC (4.23-9.07) K/mm3 RBC (4.63-6.08) M/mm3 Hgb (13.7-17.5) gm/dl Hct (40.1-51.0) % MCV (79.0-92.2) fl MCH (25.7-32.2) pg MCHC (32.2-35.5) g/dl RDW Std Deviation (35.1-43.9) fL Plt Count (163-337) K/mm3 MPV (9.4-12.3) fl Neut % (Auto) (34.0-67.9) % Lymph % (Auto) (21.8-53.1) % Dodge % (Auto) (5.3-12.2) % Eos % (Auto) (0.8-7.0) Baso % (Auto) (0.1-1.2) % Neut # (Auto) (1.78-5.38) K/mm3 Lymph # (Auto) (1.32-3.57) K/mm3 [place] # (Auto) (0.30-0.82) K/mm3 Eos # (Auto) (0.04-0.54) K/mm3 Baso # (Auto) (0.01-0.08) K/mm3 Sodium 142 (136-145) mEq/L Potassium 3.8 (3.5-5.1) mEq/L Chloride 105 (98-107) mEq/L Carbon Dioxide 25 (21-32) mEq/L Anion Gap 15.8 H (5-15) BUN 24 H (7-18) mg/dL Creatinine 1.1 (0.7-1.3) mg/dL Est Cr Clr Drug Dosing 69.13 mL/min Estimated GFR (MDRD) > 60 (>60) mL/min BUN/Creatinine Ratio 21.8 H (14-18) Glucose 140 H (70-99) mg/dL POC Glucose 149 H 207 H (70-99) mg/dL Calcium 7.9 L (8.5-10.1) mg/dL Total Bilirubin 0.5 (0.2-1.0) mg/dL AST 10 L (15-37) U/L ALT 29 (16-63) U/L Alkaline Phosphatase 65 (46-116) U/L Total Protein 5.9 L (6.4-8.2) g/dl Albumin 2.8 L (3.4-5.0) g/dl Globulin 3.1 gm/dL Albumin/Globulin Ratio 0.9 L (1-2) Result Diagrams: 02/02/21 05:31 02/02/21 05:31 Sepsis Event Note - Evaluation Sepsis Screening Result: No Definite Risk - Focused Exam Vital Signs: Vital Signs Temp Pulse Resp BP BP Pulse Ox Pulse Ox 02/02/21 11:54 36.1 C 16 103/77 97 02/02/21 10:14 101/69 96 02/02/21 10:13 82 101/69 100 02/02/21 10:00 94 L 02/02/21 09:00 95 02/02/21 08:22 103 H 118/67 02/02/21 08:01 99 02/02/21 08:00 36.2 C 16 118/67 118/67 97 02/02/21 07:59 95 02/02/21 07:00 99 02/02/21 06:00 98 02/02/21 05:50 115/68 86 L 93 L 02/02/21 05:49 89 L 02/02/21 05:00 100 02/02/21 04:01 98 02/02/21 04:00 36.2 C 14 108/77 108/77 100 02/02/21 03:59 95 02/02/21 03:00 92 L 02/02/21 02:00 97 - Problem List Review Problem List Initiated/Reviewed/Updated: Yes - My Orders Last 24 Hours: My Active Orders 02/01/21 14:00 Patient Status [ADT] Routine 02/02/21 09:30 Metoprolol Tartrate [Lopressor] 12.5 mg PO Q12HR 02/02/21 21:00 Metoprolol Tartrate [Lopressor] 50 mg PO Q12H 02/03/21 05:00 CBC WITH AUTO DIFF [HEME] DAILY COMPREHENSIVE METABOLIC PN,CMP [CHEM] DAILY 02/04/21 05:00 CBC WITH AUTO DIFF [HEME] DAILY COMPREHENSIVE METABOLIC PN,CMP [CHEM] DAILY 02/05/21 05:00 CBC WITH AUTO DIFF [HEME] DAILY COMPREHENSIVE METABOLIC PN,CMP [CHEM] DAILY - Plan Plan:: Patient is a 65-year-old male with a history of diabetes, atrial fibrillation, and hypertension who presented to the ER due to shortness of breath and chest pain for 4 days. Assessment: Acute hypoxic respiratory failure -Etiology could be due to CHF, atrial fibrillation with RVR or cardiac ischemia. D-dimer positive, CT angio chest negative for PE -Not on home oxygen -Pulse ox -Oxygen therapy to keep oxygen saturation greater than 92% Atrial fibrillation with RVR -History of atrial fibrillation with RVR 4 years ago -Not on medication (including blood thinner) for his atrial fibrillation -Was on Eliquis. -Heart rate up to 150 in the ER -Possibly associated with chest pain Chest pain -Etiology unknown. Could be due to demand ischemia due to atrial fibrillation with RVR -EKG no ST elevation -Troponin negative x 3 Diastolic CHF exacerbation? -BNP 6679 -Could be due to diastolic dysfunction -CXR and CTA chest -cardiomegaly and pulmonary vascular congestion -Echocardiogram-LVEF 60 to 65%; moderate septal left ventricle hypertrophy; moderate MR; moderate to TR; there is severe biatrial dilation. -Mag 1.9 phos 3.0 DM type II with hyperglycemia -Home medications include lantus 32 units bedtime, victoza and metformin -I would like to order the Lantus 10 units daily and insulin sliding scale. Adjust insulin based on sugar levels -Hemoglobin A1c 8.3 HTN -Not on blood pressure medication -Hydralazine as needed BRENDEN -creatinine 1.9 on 10/25/2015 -Could be due to diabetic nephropathy -Avoid nephrotoxic meds -Creatinine 1.1 today Leukocytosis 9.94 -No evidence of infection: Afebrile and x-ray negative for pneumonia -Closely monitor Elevation of D-dimer 0.67 -CT angio chest negative for PE -Doppler ultrasound negative for DVT Plan: 1. Continue to be monitored in ICU 2. Increased metoprolol to 62.5 mg twice daily Continue diltiazem drip as needed Continue Eliquis 5 mg twice daily 3. Continue Aspirin and Lipitor 4. Lantus 10 units daily, continue home medication Jardiance. Insulin sliding scale 5. Lasix 20 mg IV daily. Intake and output. Daily weight. Repeat electrolytes and renal function daily 6. DVT prophylaxis: Eliquis 7. CODE STATUS DNR/DNI. Deposition PT OT Possible discharge in 1 or 2 days
[2021-02-02] MEDS: atorvaSTATin 20 MG Tab PO SCH (20:27)
[2021-02-03] MEDS: Insulin Glarg,Human.Rec.Analog 100 Unit/ML SUBCUT SCH ×2 (07:44→08:21)
[2021-02-03] MEDS: Insulin Lispro 100 UNIT/ML 10 ML Vial SUBCUT SCH ×5 (07:44→21:45)
[2021-02-03] MEDS: Aspirin 81 MG Tab.EC PO SCH (08:14)
[2021-02-03] MEDS: Apixaban 5 MG Tab PO SCH ×2 (08:14→20:12)
[2021-02-03] MEDS: Furosemide 20 MG/2 ML VIAL IVPUSH SCH (08:14)
[2021-02-03] MEDS: Metoprolol Tartrate 25 MG Tab PO SCH ×2 (08:20→20:12)
[2021-02-03] MEDS: Metoprolol Tartrate 50 MG Tab PO SCH ×2 (08:21→20:12)
[2021-02-03] MEDS: LIRAGLUTIDE 18 MG/3 ML SQ SCH (08:21)
[2021-02-03] MEDS ORDERED: Diltiazem 240 MG Cap.ER PO ONE (15:24)
[2021-02-03] MEDS: atorvaSTATin 20 MG Tab PO SCH (20:12)
[2021-02-04] MEDS: Insulin Lispro 100 UNIT/ML 10 ML Vial SUBCUT SCH ×2 (08:12→11:49)
[2021-02-04] MEDS: Aspirin 81 MG Tab.EC PO SCH (08:14)
[2021-02-04] MEDS: Metoprolol Tartrate 25 MG Tab PO SCH (08:14)
[2021-02-04] MEDS: Metoprolol Tartrate 50 MG Tab PO SCH (08:14)
[2021-02-04] MEDS: Furosemide 20 MG/2 ML VIAL IVPUSH SCH (08:14)
[2021-02-04] MEDS: Apixaban 5 MG Tab PO SCH (08:15)
[2021-02-04] MEDS: LIRAGLUTIDE 18 MG/3 ML SQ SCH (08:15)
[2021-02-04] MEDS ORDERED: Insulin Glarg,Human.Rec.Analog 100 Unit/ML SUBCUT SCH ×2 (09:00→21:00)
[2021-02-04] MEDS ORDERED: Diltiazem 120 MG Cap.CD PO SCH (10:15)
[2021-02-04] MEDS ORDERED: Losartan 25 MG Tab PO SCH (10:15)
[2021-02-04 10:24] VITALS: BP 107/70; PULSE 84
--- NOTE | 2021-02-04 12:20 | PCM.DCSUM1 ---
Discharge Summary - Hospital Course Free Text/Narrative:: [facility] Admission History & Physical Patient Name: MEGAN AUSTIN Date of : 1955 Patient Status: Inpatient Attending Provider: Marianne Garcia Date: 01/31/21 13:34 Initialization Date: 01/31/21 13:34 H&P History of Present Illness - General Date of Service: 01/31/21 Admit Problem/Dx: Admission Diagnosis/Problem Admission Diagnosis/Problem Afib, Atrial fibrillation Source of Information: Patient, Other (chart) - History of Present Illness Initial Comments - Free Text/Narative: Patient is a 65-year-old male with a history of diabetes, atrial fibrillation, and hypertension who presented to the ER due to shortness of breath and chest pain for 4 days. As per patient, he has been having shortness of breath for 4 days. he also feels dizzy and has diffuse chest pain whenever he moves. The pain is dull in nature and 5 out of 10 in severity. Otherwise he denies headache, fever, chills, nausea, vomiting, abdominal pain, or dysuria. In the ER, she needs oxygen 2 L via nasal cannula. His heart rate up to 150. He is not on home oxygen. he has diabetes but ran out of his insulin about 1 week ago and has not refilled it. His blood glucose of 244 in the ER. As per patient, he was admitted to our hospital 4 years ago due to atrial fibrillation with RVR. He is not on medication including blood thinner for atrial fibrillation. Chest Pain Score (Numeric/FACES): 2 - Related Data Allergies/Adverse Reactions: Allergies Allergy/AdvReac Type Severity Reaction Status Date / Time No Known Allergies Allergy Verified 01/31/21 09:12 Home Medications: Home Meds Liraglutide [Victoza] 1.8 ml SQ DAILY 10/25/15 [History] metFORMIN [Glucophage] 1,000 mg PO BID 10/25/15 [History] Insulin Glarg,Human.Rec.Analog [Lantus] 32 units SQ BEDTIME 01/31/21 [History] Past Medical History HEENT History: Reports: Cataract, Impaired Vision Other HEENT History: reading eyeglasses Cardiovascular History: Reports: Afib, Hypertension Musculoskeletal History: Reports: Fracture Endocrine/Metabolic History: Reports: Diabetes, Type II - Past Surgical History HEENT Surgical History: Reports: Cataract Surgery Social & Family History - Family History Family Medical History: No Pertinent Family History (Denies genetic diseases in family) - Tobacco Use Tobacco Use Status *Q: Never Tobacco User Second Hand Smoke Exposure: No - Caffeine Use Caffeine Use: Reports: None - Recreational Drug Use Recreational Drug Use: No H&P Review of Systems - Review of Systems: Review Of Systems: See Below General: Reports: No Symptoms HEENT: Reports: No Symptoms Pulmonary: Reports: Shortness of Breath Cardiovascular: Reports: Chest Pain Gastrointestinal: Reports: No Symptoms Genitourinary: Reports: No Symptoms Musculoskeletal: Reports: No Symptoms Skin: Reports: No Symptoms Psychiatric: Reports: No Symptoms Neurological: Reports: Dizziness Hematologic/Lymphatic: Reports: No Symptoms Immunologic: Reports: No Symptoms Exam - Exam Exam: See Below - Vital Signs Vital Signs: Last Vital Signs Temp 36.8 C 01/31/21 09:08 Pulse 119 H 01/31/21 10:36 Resp 20 01/31/21 10:36 BP 119/95 H 01/31/21 10:36 Pulse Ox 94 L 01/31/21 10:36 Weight: 98.883 kg - Exam General: Alert, Oriented, Cooperative HEENT: Conjunctiva Clear, EOMI, Pupils Equal, Pupils Reactive Neck: Supple, Full Range of Motion Lungs: Clear to Auscultation, Normal Respiratory Effort Cardiovascular: Irregular Rhythm GI/Abdominal Exam: Normal Bowel Sounds, Soft, Non-Tender, No Organomegaly Extremities: Normal Inspection, Normal Range of Motion, Non-Tender, Pedal Edema (1 to 2+) Skin: Warm, Dry, Intact Neurological: Strength Equal Bilateral, Normal Speech, Normal Tone, Sensation Intact Neuro Extensive - Mental Status: Alert, Oriented x3, Normal Mood/Affect Psychiatric: Normal Affect, Normal Mood - Patient Data Lab Results Last 24 hrs: Laboratory Results - last 24 hr 01/31/21 01/31/21 01/31/21 Range/Units 08:55 08:55 08:55 WBC 12.82 H (4.23-9.07) K/mm3 RBC 4.44 L (4.63-6.08) M/mm3 Hgb 14.3 D (13.7-17.5) gm/dl Hct 41.4 (40.1-51.0) % MCV 93.2 H (79.0-92.2) fl MCH 32.2 (25.7-32.2) pg MCHC 34.5 (32.2-35.5) g/dl RDW Std Deviation 43.8 (35.1-43.9) fL Plt Count 270 (163-337) K/mm3 MPV 12.5 H (9.4-12.3) fl Neut % (Auto) 75.3 H (34.0-67.9) % Lymph % (Auto) 16.9 L (21.8-53.1) % Baldwin % (Auto) 7.0 (5.3-12.2) % Eos % (Auto) 0.5 L (0.8-7.0) Baso % (Auto) 0.3 (0.1-1.2) % Neut # (Auto) 9.64 H (1.78-5.38) K/mm3 Lymph # (Auto) 2.17 (1.32-3.57) K/mm3 Baldwin # (Auto) 0.90 H (0.30-0.82) K/mm3 Eos # (Auto) 0.07 (0.04-0.54) K/mm3 Baso # (Auto) 0.04 (0.01-0.08) K/mm3 D-Dimer, Quantitative 0.67 H (0.19-0.50) mg/L Sodium 140 (136-145) mEq/L Potassium 4.4 (3.5-5.1) mEq/L Chloride 104 (98-107) mEq/L Carbon Dioxide 24 (21-32) mEq/L Anion Gap 16.4 H (5-15) BUN 38 H (7-18) mg/dL Creatinine 1.4 H (0.7-1.3) mg/dL Est Cr Clr Drug Dosing 54.32 mL/min Estimated GFR (MDRD) 51 (>60) mL/min BUN/Creatinine Ratio 27.1 H (14-18) Glucose 288 H (70-99) mg/dL POC Glucose (70-99) mg/dL Calcium 8.5 (8.5-10.1) mg/dL Magnesium 2.2 (1.8-2.4) mg/dL Total Bilirubin 0.5 (0.2-1.0) mg/dL AST 22 (15-37) U/L ALT 31 (16-63) U/L Alkaline Phosphatase 82 (46-116) U/L Troponin I < 0.017 (0.00-0.056) ng/mL C-Reactive Protein 0.8 (<1.0) mg/dL NT-Pro-B Natriuret Pep (0-125) pg/mL Total Protein 6.9 (6.4-8.2) g/dl Albumin 3.5 (3.4-5.0) g/dl Globulin 3.4 gm/dL Albumin/Globulin Ratio 1.0 (1-2) TSH 3rd Generation 1.426 (0.358-3.74) uIU/mL SARS-CoV-2 RNA (DEVIN) (NEGATIVE) 01/31/21 01/31/21 01/31/21 Range/Units 08:55 08:59 09:27 WBC (4.23-9.07) K/mm3 RBC (4.63-6.08) M/mm3 Hgb (13.7-17.5) gm/dl Hct (40.1-51.0) % MCV (79.0-92.2) fl MCH (25.7-32.2) pg MCHC (32.2-35.5) g/dl RDW Std Deviation (35.1-43.9) fL Plt Count (163-337) K/mm3 MPV (9.4-12.3) fl Neut % (Auto) (34.0-67.9) % Lymph % (Auto) (21.8-53.1) % Baldwin % (Auto) (5.3-12.2) % Eos % (Auto) (0.8-7.0) Baso % (Auto) (0.1-1.2) % Neut # (Auto) (1.78-5.38) K/mm3 Lymph # (Auto) (1.32-3.57) K/mm3 Baldwin # (Auto) (0.30-0.82) K/mm3 Eos # (Auto) (0.04-0.54) K/mm3 Baso # (Auto) (0.01-0.08) K/mm3 D-Dimer, Quantitative (0.19-0.50) mg/L Sodium (136-145) mEq/L Potassium (3.5-5.1) mEq/L Chloride (98-107) mEq/L Carbon Dioxide (21-32) mEq/L Anion Gap (5-15) BUN (7-18) mg/dL Creatinine (0.7-1.3) mg/dL Est Cr Clr Drug Dosing mL/min Estimated GFR (MDRD) (>60) mL/min BUN/Creatinine Ratio (14-18) Glucose (70-99) mg/dL POC Glucose 244 H (70-99) mg/dL Calcium (8.5-10.1) mg/dL Magnesium (1.8-2.4) mg/dL Total Bilirubin (0.2-1.0) mg/dL AST (15-37) U/L ALT (16-63) U/L Alkaline Phosphatase (46-116) U/L Troponin I (0.00-0.056) ng/mL C-Reactive Protein (<1.0) mg/dL NT-Pro-B Natriuret Pep 6679 H (0-125) pg/mL Total Protein (6.4-8.2) g/dl Albumin (3.4-5.0) g/dl Globulin gm/dL Albumin/Globulin Ratio (1-2) TSH 3rd Generation (0.358-3.74) uIU/mL SARS-CoV-2 RNA (DEVIN) Negative (NEGATIVE) Result Diagrams: 01/31/21 08:55 01/31/21 08:55 Sepsis Event Note - Evaluation Sepsis Screening Result: No Definite Risk - Focused Exam Vital Signs: Vital Signs Temp Pulse Resp BP Pulse Ox 01/31/21 10:36 119 H 20 119/95 H 94 L 01/31/21 09:08 36.8 C 143 H 16 125/69 96 01/31/21 08:50 35.8 C L 146 H 24 H 152/95 H 90 L Problem List Initiated/Reviewed/Updated: Yes Orders Last 24hrs: Active Orders 24 hr Category Date Time Status Admission Status [Patient Status] [ADT] Routine ADT 01/31/21 12:17 Active Blood Glucose Check, Bedside [RC] QIDACANDBED Care 01/31/21 12:59 Ordered Cardiac Monitoring [RC] CONTINUOUS Care 01/31/21 13:00 Ordered Communication Order [RC] Per Unit Routine Care 01/31/21 13:06 Ordered Communication Order [RC] Per Unit Routine Care 01/31/21 13:06 Ordered Diabetes Education [RC] Click to Edit Care 01/31/21 13:01 Ordered EKG Documentation Completion [RC] ASDIRECTED Care 01/31/21 08:53 Active Intake and Output [RC] QSHIFT Care 01/31/21 12:59 Ordered Oxygen Therapy [RC] PRN Care 01/31/21 12:59 Ordered Pulse Oximetry [RC] CONTINUOUS Care 01/31/21 13:00 Ordered RT Aerosol Therapy [RC] ASDIRECTED Care 01/31/21 13:03 Ordered Up to Chair [RC] ASDIRECTED Care 01/31/21 12:59 Ordered VTE/DVT Education [RC] PER UNIT ROUTINE Care 01/31/21 12:59 Ordered Vital Signs [RC] Q4H Care 01/31/21 12:59 Ordered OT Evaluation and Treatment [CONS] Routine Cons 01/31/21 12:59 Ordered PT Evaluation and Treatment [CONS] Routine Cons 01/31/21 12:59 Ordered Respiratory Care Assess and Treatment [CONS] Routine Cons 01/31/21 12:59 Ordered 2 Gram Sodium Diet [DIET] Diet 01/31/21 Lunch Ordered Consistent Carbohydrate Diet [DIET] Diet 01/31/21 Lunch Ordered Echo Comp wo Cont [US] Stat Exams 01/31/21 13:16 Ordered CBC WITH AUTO DIFF [HEME] DAILY Lab 02/01/21 05:00 Ordered CBC WITH AUTO DIFF [HEME] DAILY Lab 02/02/21 05:00 Ordered CBC WITH AUTO DIFF [HEME] DAILY Lab 02/03/21 05:00 Ordered CBC WITH AUTO DIFF [HEME] DAILY Lab 02/04/21 05:00 Ordered CBC WITH AUTO DIFF [HEME] DAILY Lab 02/05/21 05:00 Ordered COMPREHENSIVE METABOLIC PN,CMP [CHEM] DAILY Lab 02/01/21 05:00 Ordered COMPREHENSIVE METABOLIC PN,CMP [CHEM] DAILY Lab 02/02/21 05:00 Ordered COMPREHENSIVE METABOLIC PN,CMP [CHEM] DAILY Lab 02/03/21 05:00 Ordered COMPREHENSIVE METABOLIC PN,CMP [CHEM] DAILY Lab 02/04/21 05:00 Ordered COMPREHENSIVE METABOLIC PN,CMP [CHEM] DAILY Lab 02/05/21 05:00 Ordered INR,PT,PROTHROMBIN TIME [COAG] Routine Lab 01/31/21 12:59 Ordered MAGNESIUM [CHEM] Routine Lab 01/31/21 12:59 Ordered PHOSPHORUS [CHEM] Routine Lab 01/31/21 12:59 Ordered PTT,PARTIAL THROMBOPLSTIN TIME [COAG] Routine Lab 01/31/21 12:59 Ordered TROPONIN I [CHEM] Q6H Lab 01/31/21 12:59 Ordered TROPONIN I [CHEM] Q6H Lab 01/31/21 18:59 Ordered UA RFX ELI AND CULT IF INDIC [URIN] Stat Lab 01/31/21 09:07 Ordered Acetaminophen [TylenoL] Med 01/31/21 12:59 Ordered 650 mg PO Q6H PRN Acetaminophen/HYDROcodone [[place] 325-5 MG] Med 01/31/21 12:59 Ordered 1 tab PO Q6H PRN Albuterol/Ipratropium [DuoNeb 3.0-0.5 MG/3 ML] Med 01/31/21 12:59 Ordered 3 ml NEB Q4H PRN Apixaban [Eliquis] Med 01/31/21 21:00 Ordered 5 mg PO BID Diltiazem 100 MG in Normal Saline @ 5 MG/HR(100ml) Med 01/31/21 13:15 Ordered Diltiazem [Cardizem] 100 mg Sodium Chloride 0.9% [Normal Saline] 100 ml IV TITRATE Furosemide [Lasix] Med 02/01/21 09:00 Ordered 20 mg IVPUSH BID Heparin Sodium Med 01/31/21 13:00 Ordered 5,000 units SUBCUT Q8H Insulin Glarg,Human.Rec.Analog [LantUS] Med 01/31/21 13:15 Ordered 10 unit SUBCUT DAILY Insulin Lispro [HumaLOG] Med 01/31/21 17:00 Ordered See Protocol SUBCUT QIDACANDBED LORazepam [Ativan] Med 01/31/21 12:59 Ordered 0.5 mg IV Q6H PRN Liraglutide [Victoza] Med 01/31/21 13:15 Ordered 1.8 ml SQ DAILY Metoprolol Tartrate [Lopressor] Med 01/31/21 13:15 Ordered 12.5 mg PO Q12H Morphine Med 01/31/21 12:59 Ordered 2 mg IVPUSH Q4H PRN Promethazine [Phenergan] 12.5 mg Med 01/31/21 12:59 Ordered Sodium Chloride 0.9% [Normal Saline] 50 ml IV Q6H Sodium Chloride 0.9% [Normal Saline] 100 ml Med 01/31/21 11:45 Active IV ASDIRECTED Sodium Chloride 0.9% [Normal Saline] 500 ml Med 01/31/21 11:38 Active IV .BOLUS Sodium Chloride 0.9% [Saline Flush] Med 01/31/21 09:07 Active 10 ml FLUSH ASDIRECTED PRN Sodium Chloride 0.9% [Saline Flush] Med 01/31/21 11:42 Active 10 ml FLUSH ONETIME PRN Glucose Management Sub Q Reflex [OM.PC] Click to Edit Oth 01/31/21 12:59 Ordered Saline Lock Insert [OM.PC] Stat Oth 01/31/21 09:07 Ordered EKG 12 Lead [EK] Stat Ther 01/31/21 08:53 Ordered Medication Orders Acetaminophen (Acetaminophen 325 Mg Tab) 650 mg PO Q6H PRN PRN Reason: Pain (Mild 1-3)/fever Hydrocodone Bitart/Acetaminophen (Acetaminophen/Hydrocodone 325-5 Mg Tab) 1 tab PO Q6H PRN PRN Reason: Pain (moderate 4-6) Albuterol/Ipratropium (Albuterol/Ipratropium 3.0-0.5 Mg/3 Ml Neb Soln) 3 ml NEB Q4H PRN PRN Reason: Shortness Of Breath/wheezing Apixaban (Apixaban 5 Mg Tab) 5 mg PO BID RUBEN Furosemide (Furosemide 20 Mg/2 Ml Vial) 20 mg IVPUSH BID [facility] Heparin Sodium (Porcine) (Heparin Sodium 5,000 Units/Ml Vial) 5,000 units SUBCUT Q8H RUBEN Sodium Chloride (Normal Saline) 500 mls @ 250 mls/hr IV .BOLUS ONE Stop: 01/31/21 13:37 Last Admin: 01/31/21 11:51 Dose: 250 mls/hr Documented by: HOWIE Sodium Chloride (Normal Saline) 100 mls @ 75 mls/hr IV ASDIRECTED RUBEN Last Admin: 01/31/21 12:43 Dose: 75 mls/hr Documented by: ROSSY Promethazine HCl 12.5 mg/ (Sodium Chloride) 50.5 mls @ 100 mls/hr IV Q6H PRN PRN Reason: Nausea/Vomiting Diltiazem HCl 100 mg/ Sodium (Chloride) 100 mls @ 5 mls/hr IV TITRATE RUBEN; Protocol Insulin Glargine (Insulin Glarg,Human.Rec.Analog 100 Unit/Ml) 10 unit SUBCUT DA SANTIAGO RUBEN Insulin Human Lispro (Insulin Lispro 100 Unit/Ml 10 Ml Vial) 0 unit SUBCUT QIDACANDBED RUBEN; Protocol Lorazepam (Lorazepam 2 Mg/Ml Sdv) 0.5 mg IV Q6H PRN PRN Reason: Agitation Metoprolol Tartrate (Metoprolol Tartrate 25 Mg Tab) 12.5 mg PO Q12H RUBEN Morphine Sulfate (Morphine 2 Mg/Ml Syringe) 2 mg IVPUSH Q4H PRN PRN Reason: Pain (severe 7-10) Stop: 02/01/21 13:01 Non-Formulary Medication (Liraglutide [Victoza]) 1.8 ml SQ DAILY RUBEN Sodium Chloride (Sodium Chloride 0.9% 10 Ml Syringe) 10 ml FLUSH ASDIRECTED PRN PRN Reason: Keep Vein Open Last Admin: 01/31/21 09:11 Dose: 10 ml Documented by: ARSH Sodium Chloride (Sodium Chloride 0.9% 10 Ml Syringe) 10 ml FLUSH ONETIME PRN PRN Reason: IV FLUSH Last Admin: 01/31/21 12:43 Dose: 10 ml Documented by: ROSSY Assessment/Plan Comment:: Patient is a 65-year-old male with a history of diabetes, atrial fibrillation, and hypertension who presented to the ER due to shortness of breath and chest p ain for 4 days. Assessment: Acute hypoxic respiratory failure -Etiology could be due to CHF, atrial fibrillation with RVR or cardiac ischemia. D-dimer positive, CT angio chest negative for PE -Not on home oxygen -Pulse ox -Oxygen therapy to keep oxygen saturation greater than 92% Atrial fibrillation with RVR -History of atrial fibrillation with RVR 4 years ago -Not on medication (including blood thinner) for his atrial fibrillation -Was on Eliquis. -Heart rate up to 150 in the ER -Possibly associated with chest pain Chest pain -Etiology unknown. Could be due to demand ischemia due to atrial fibrillation with RVR -EKG no ST elevation -Troponin was negative in the ER. CHF exacerbation? -BNP 6679 -Type unknown -CXR and CTA chest -cardiomegaly and pulmonary vascular congestion -Echocardiogram DM type II with hyperglycemia -Home medications include lantus 32 units bedtime, victoza and metformin -I would like to order the Lantus 10 units daily and insulin sliding scale. Adjust insulin based on sugar levels -Hemoglobin A1c HTN -Not on blood pressure medication -Hydralazine as needed CKD stage IIIA -creatinine 1.9 on 10/25/2015 -Could be due to diabetic nephropathy -Avoid nephrotoxic meds Leukocytosis 12.82 -No evidence of infection: Afebrile and x-ray negative for pneumonia -Closely monitor Elevation of D-dimer 0.67 -CT angio chest negative for PE -Doppler ultrasound negative for DVT Plan: 1. Patient will be admitted to the ICU 2. Diltiazem 20 mg bolus was given in the ER. Continue diltiazem drip Metoprolol tartrate 12.5 mg twice daily Eliquis 5 mg twice daily 3. Trending troponin. Aspirin and Lipitor 4. Patient received contrast in the ER for CT angio chest. I will continue low-dose IV fluid. I will start Lasix 20 mg IV twice daily tomorrow 5. DVT prophylaxis: Eliquis 6. CODE STATUS DNR/DNI. Deposition PT OT - Mortality Measure Prognosis:: Good HPI Initial Comments: 02/04/21 doing well afib rate controlled on oral diltiazem and increased beta clara. cont lasix and added arb for better chf contol and b.p control. 2) diabetes poorly controlled as he ran out of meds and no provider here. working and will arrange follow up and he agrees to get meds . 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 discussed monitoring andneed d.e follow up and primary care f/u. boh - Discharge Data Discharge Date: 02/04/21 Discharge Disposition: Home, Self-Care 01 Condition: Good - Referral to Home Health Primary Care Physician: PCP Not In Area - Discharge Diagnosis/Problem(s) (1) Diabetes 1.5, managed as type 1 SNOMED Code(s): 828939296 ICD Code: E13.9 - OTHER SPECIFIED DIABETES MELLITUS WITHOUT COMPLICATIONS Status: Acute Priority: High Current Visit: Yes Onset Date: ~01/31/21 Problem Details: no meds and was not treating / help with affording meds pending. (2) Hypoproteinemia SNOMED Code(s): 0375236 ICD Code: E77.8 - OTHER DISORDERS OF GLYCOPROTEIN METABOLISM Status: Acute Priority: High Current Visit: Yes Onset Date: ~01/31/21 Problem Details: catabolism sec to no insulin improved. needs d.e follow up (3) Hypercatabolic hypoproteinemia SNOMED Code(s): 5510835, 26285764 ICD Code: E88.09 - OTH DISORDERS OF PLASMA-PROTEIN METABOLISM, NEC Status: Acute Priority: High Current Visit: Yes Onset Date: ~01/31/21 Problem Details: protienuria and mild renal insuff on lasix and added arb and monitoring b.p which was high on admission . (4) Chronic renal insufficiency, stage II (mild) SNOMED Code(s): 863631245 ICD Code: N18.2 - CHRONIC KIDNEY DISEASE, STAGE 2 (MILD) Status: Acute Priority: Medium Current Visit: Yes Onset Date: ~02/01/21 (5) CHF (congestive heart failure), NYHA class II SNOMED Code(s): 399963919, 247168066 ICD Code: I50.9 - HEART FAILURE, UNSPECIFIED Status: Acute Priority: Medium Current Visit: Yes Onset Date: ~01/31/21 Problem Details: afib and cad known with lvh make high risk will need follow up primary care Qualifiers: Congestive heart failure type: diastolic Congestive heart failure chronic ity: acute on chronic Qualified Code(s): I50.33 - Acute on chronic diastolic (congestive) heart failure - Patient Summary/Data Consults: Consultations 01/31/21 12:59 OT Evaluation and Treatment [CONS] Routine PT Evaluation and Treatment [CONS] Routine Respiratory Care Assess and Treatment [CONS] Routine - Patient Instructions Diet: Diabetic Diet Activity: As Tolerated Driving: Do Not Drive Showering/Bathing: May Shower - Discharge Plan *PRESCRIPTION DRUG MONITORING PROGRAM REVIEWED*: No *COPY OF PRESCRIPTION DRUG MONITORING REPORT IN PATIENT ROXY: No Prescriptions/Med Rec: Diltiazem [Cardizem CD] 120 mg PO DAILY #90 cap.cd Losartan [Cozaar] 25 mg PO DAILY #90 tablet Apixaban [Eliquis] 5 mg PO BID 30 Days #60 tablet Insulin Lispro [Humalog] 5 unit SUBCUT TIDMEALS #5 pen Insulin Glarg,Human.Rec.Analog [Lantus] 20 unit SUBCUT DAILY 30 Days #1 units Furosemide [Lasix] 20 mg PO Q48H #30 tablet atorvaSTATin [Lipitor] 20 mg PO BEDTIME #90 tablet Metoprolol Tartrate [Lopressor] 50 mg PO Q12H 90 Days #120 tablet Metoprolol Tartrate [Lopressor] 75 mg PO Q12H #120 tablet metFORMIN [Glucophage] 1,000 mg PO BID #90 Home Medications: Home Meds metFORMIN [Glucophage] 1,000 mg PO BID 10/25/15 [History] Insulin Glarg,Human.Rec.Analog [Lantus] 32 units SQ BEDTIME 01/31/21 [History] Apixaban [Eliquis] 5 mg PO BID 30 Days #60 tablet 02/04/21 [Rx] Aspirin [Halfprin] 81 mg PO DAILY tab.ec 02/04/21 [Rx] Diltiazem [Cardizem CD] 120 mg PO DAILY #90 cap.cd 02/04/21 [Rx] Furosemide [Lasix] 20 mg PO Q48H #30 tablet 02/04/21 [Rx] Insulin Glarg,Human.Rec.Analog [Lantus] 20 unit SUBCUT DAILY 30 Days #1 units 02/04/21 [Rx] Insulin Lispro [Humalog] 5 unit SUBCUT TIDMEALS #5 pen 02/04/21 [Rx] Losartan [Cozaar] 25 mg PO DAILY #90 tablet 02/04/21 [Rx] Metoprolol Tartrate [Lopressor] 50 mg PO Q12H 90 Days #120 tablet 02/04/21 [Rx] Metoprolol Tartrate [Lopressor] 75 mg PO Q12H #120 tablet 02/04/21 [Rx] atorvaSTATin [Lipitor] 20 mg PO BEDTIME #90 tablet 02/04/21 [Rx] metFORMIN [Glucophage] 1,000 mg PO BID #90 02/04/21 [Rx] Oxygen Therapy Mode: Room Air Patient Handouts: Insulin Treatment for Diabetes Mellitus, Insulin Injection Instructions, Using Insulin Pens, Adult, Atrial Fibrillation, [id number] Forms: ED Department Discharge Referrals: Son Maharaj MD [Ordering Only Provider] - 02/12/21 2:20 pm (This is Jayson time, please come 30 minutes prior to the appointment time, and this is at the [facility] in [place].) - Discharge Summary/Plan Comment DC Time >30 min.: Yes - General Info Date of Service: 02/04/21 Admission Dx/Problem (Free Text: afib rvr////diabetes with catabolism and hypoproteinemia Subjective Update: 02/04/21 doing well afib rate controlled on oral diltiazem and increased beta clara. cont lasix and added arb for better chf contol and b.p control. 2) diabetes poorly controlled as he ran out of meds and no provider here. working and will arrange follow up and he agrees to get meds . 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 discussed monitoring andneed d.e follow up and primary care f/u. boh Functional Status: Reports: Pain Controlled - Review of Systems General: Reports: No Symptoms HEENT: Reports: No Symptoms Pulmonary: Reports: No Symptoms Cardiovascular: Reports: No Symptoms Gastrointestinal: Reports: No Symptoms Genitourinary: Reports: No Symptoms Musculoskeletal: Reports: No Symptoms Skin: Reports: No Symptoms Neurological: Reports: No Symptoms Psychiatric: Reports: No Symptoms - Patient Data Vitals - Most Recent: Last Vital Signs Temp 36.8 C 02/04/21 07:44 Pulse 84 02/04/21 10:21 Resp 16 02/04/21 07:44 BP 107/70 02/04/21 10:22 Pulse Ox 95 02/04/21 07:44 Weight - Most Recent: 94.347 kg I&O - Last 24 hours: Intake & Output 02/03/21 02/04/21 02/04/21 22:59 06:59 14:59 Intake Total 1738 800 220 Output Total 1500 800 Balance 238 0 220 Lab Results - Last 24 hrs: Laboratory Results - last 24 hr 02/03/21 02/03/21 02/04/21 Range/Units 17:06 20:21 04:56 WBC 8.78 (4.23-9.07) K/mm3 RBC 4.13 L (4.63-6.08) M/mm3 Hgb 13.1 L (13.7-17.5) gm/dl Hct 38.7 L (40.1-51.0) % MCV 93.7 H (79.0-92.2) fl MCH 31.7 (25.7-32.2) pg MCHC 33.9 (32.2-35.5) g/dl RDW Std Deviation 43.1 (35.1-43.9) fL Plt Count 279 (163-337) K/mm3 MPV 12.3 (9.4-12.3) fl Neut % (Auto) 57.1 (34.0-67.9) % Lymph % (Auto) 30.8 (21.8-53.1) % Baldwin % (Auto) 8.1 (5.3-12.2) % Eos % (Auto) 3.2 (0.8-7.0) Baso % (Auto) 0.7 (0.1-1.2) % Neut # (Auto) 5.02 (1.78-5.38) K/mm3 Lymph # (Auto) 2.70 (1.32-3.57) K/mm3 Baldwin # (Auto) 0.71 (0.30-0.82) K/mm3 Eos # (Auto) 0.28 (0.04-0.54) K/mm3 Baso # (Auto) 0.06 (0.01-0.08) K/mm3 Manual Slide Review Not Reportable Sodium (136-145) mEq/L Potassium (3.5-5.1) mEq/L Chloride (98-107) mEq/L Carbon Dioxide (21-32) mEq/L Anion Gap (5-15) BUN (7-18) mg/dL Creatinine (0.7-1.3) mg/dL Est Cr Clr Drug Dosing mL/min Estimated GFR (MDRD) (>60) mL/min BUN/Creatinine Ratio (14-18) Glucose (70-99) mg/dL POC Glucose 187 H 187 H (70-99) mg/dL Calcium (8.5-10.1) mg/dL Total Bilirubin (0.2-1.0) mg/dL AST (15-37) U/L ALT (16-63) U/L Alkaline Phosphatase (46-116) U/L Total Protein (6.4-8.2) g/dl Albumin (3.4-5.0) g/dl Globulin gm/dL Albumin/Globulin Ratio (1-2) 05/16/21 05/16/21 05/16/21 Range/Units 04:56 06:58 11:19 WBC (4.23-9.07) K/mm3 RBC (4.63-6.08) M/mm3 Hgb (13.7-17.5) gm/dl Hct (40.1-51.0) % MCV (79.0-92.2) fl MCH (25.7-32.2) pg MCHC (32.2-35.5) g/dl RDW Std Deviation (35.1-43.9) fL Plt Count (163-337) K/mm3 MPV (9.4-12.3) fl Neut % (Auto) (34.0-67.9) % Lymph % (Auto) (21.8-53.1) % Baldwin % (Auto) (5.3-12.2) % Eos % (Auto) (0.8-7.0) Baso % (Auto) (0.1-1.2) % Neut # (Auto) (1.78-5.38) K/mm3 Lymph # (Auto) (1.32-3.57) K/mm3 Baldwin # (Auto) (0.30-0.82) K/mm3 Eos # (Auto) (0.04-0.54) K/mm3 Baso # (Auto) (0.01-0.08) K/mm3 Manual Slide Review Sodium 140 (136-145) mEq/L Potassium 4.1 (3.5-5.1) mEq/L Chloride 104 (98-107) mEq/L Carbon Dioxide 27 (21-32) mEq/L Anion Gap 13.1 (5-15) BUN 20 H (7-18) mg/dL Creatinine 1.1 (0.7-1.3) mg/dL Est Cr Clr Drug Dosing 69.13 mL/min Estimated GFR (MDRD) > 60 (>60) mL/min BUN/Creatinine Ratio 18.2 H (14-18) Glucose 203 H (70-99) mg/dL POC Glucose 215 H 229 H (70-99) mg/dL Calcium 8.1 L (8.5-10.1) mg/dL Total Bilirubin 0.3 (0.2-1.0) mg/dL AST 9 L (15-37) U/L ALT 20 (16-63) U/L Alkaline Phosphatase 75 (46-116) U/L Total Protein 5.9 L (6.4-8.2) g/dl Albumin 2.7 L (3.4-5.0) g/dl Globulin 3.2 gm/dL Albumin/Globulin Ratio 0.8 L (1-2) Med Orders - Current: Current Medications Acetaminophen (Acetaminophen 325 Mg Tab) 650 mg PO Q6H PRN PRN Reason: Pain (Mild 1-3)/fever Hydrocodone Bitart/Acetaminophen (Acetaminophen/Hydrocodone 325-5 Mg Tab) 1 tab PO Q6H PRN PRN Reason: Pain (moderate 4-6) Albuterol/Ipratropium (Albuterol/Ipratropium 3.0-0.5 Mg/3 Ml Neb Soln) 3 ml NEB Q4H PRN PRN Reason: Shortness Of Breath/wheezing Apixaban (Apixaban 5 Mg Tab) 5 mg PO BID [facility] Last Admin: 02/04/21 08:15 Dose: 5 mg Documented by: Aspirin (Aspirin 81 Mg Tab.Ec) 81 mg PO DAILY [facility] Last Admin: 02/04/21 08:14 Dose: 81 mg Documented by: Atorvastatin Calcium (Atorvastatin 20 Mg Tab) 20 mg PO BEDTIME [facility] Last Admin: 02/03/21 20:12 Dose: 20 mg Documented by: Diltiazem HCl (Diltiazem 120 Mg Cap.Cd) 120 mg PO DAILY [facility] Last Admin: 02/04/21 10:21 Dose: 120 mg Documented by: Furosemide (Furosemide 20 Mg Tab) 20 mg PO Q48H [facility] Promethazine HCl 12.5 mg/ (Sodium Chloride) 50.5 mls @ 100 mls/hr IV Q6H PRN PRN Reason: Nausea/Vomiting Diltiazem HCl 100 mg/ Sodium (Chloride) 100 mls @ 5 mls/hr IV TITRATE [facility]; Prot ocol Last Titration: 02/03/21 13:00 Dose: 5 mg/hr, 5 mls/hr Documented by: Insulin Glargine (Insulin Glarg,Human.Rec.Analog 100 Unit/Ml) 20 unit SUBCUT DAILY [facility] Last Admin: 02/04/21 08:13 Dose: 20 units Documented by: Insulin Glargine (Insulin Glarg,Human.Rec.Analog 100 Unit/Ml) 32 unit SUBCUT BEDTIME [facility] Insulin Human Lispro (Insulin Lispro 100 Unit/Ml 10 Ml Vial) 0 unit SUBCUT QIDACANDBED [facility]; Protocol Last Admin: 02/04/21 11:49 Dose: 4 unit Documented by: Lorazepam (Lorazepam 2 Mg/Ml Sdv) 0.5 mg IV Q6H PRN PRN Reason: Agitation Losartan Potassium (Losartan 25 Mg Tab) 25 mg PO DAILY [facility] Last Admin: 02/04/21 10:22 Dose: 25 mg Documented by: Metformin HCl (Metformin 500 Mg Tab) 1,000 mg PO BIDMEALS [facility] Metoprolol Tartrate (Metoprolol Tartrate 50 Mg Tab) 50 mg PO Q12H [facility] Last Admin: 02/04/21 08:14 Dose: 50 mg Documented by: Metoprolol Tartrate (Metoprolol Tartrate 25 Mg Tab) 25 mg PO Q12H [facility] Last Admin: 02/04/21 08:14 Dose: 25 mg Documented by: Liraglutide [Victoza ] 18 Mg/3 Ml Pen Ptom 1.8 ml SQ DAILY [facility] Last Admin: 02/04/21 08:15 Dose: Not Given Documented by: Sodium Chloride (Sodium Chloride 0.9% 10 Ml Syringe) 10 ml FLUSH ASDIRECTED PRN PRN Reason: Keep Vein Open Last Admin: 01/31/21 09:11 Dose: 10 ml Documented by: Discontinued Medications Apixaban (Apixaban 5 Mg Tab) 5 mg PO ONETIME ONE Stop: 01/31/21 09:07 Last Admin: 01/31/21 09:15 Dose: 5 mg Documented by: Diltiazem HCl (Diltiazem 50 Mg/10 Ml Sdv) 20 mg IVPUSH ONETIME ONE Stop: 01/31/21 09:07 Last Admin: 01/31/21 09:19 Dose: 10 mg Documented by: Diltiazem HCl (Diltiazem 50 Mg/10 Ml Sdv) Confirm Administered Dose 50 mg .ROUTE .STK-MED ONE Stop: 01/31/21 09:07 Last Admin: 01/31/21 09:11 Dose: Not Given Documented by: Diltiazem HCl (Diltiazem 240 Mg Cap.Er) 240 mg PO ONETIME ONE Stop: 02/03/21 15:25 Last Admin: 02/03/21 15:55 Dose: 240 mg Documented by: Furosemide (Furosemide 40 Mg/4 Ml Vial) 40 mg IVPUSH NOW ONE Stop: 01/31/21 10:13 Last Admin: 01/31/21 10:35 Dose: 40 mg Documented by: Furosemide (Furosemide 20 Mg/2 Ml Vial) 20 mg IVPUSH BID [facility] Last Admin: 02/01/21 07:59 Dose: 20 mg Documented by: Furosemide (Furosemide 20 Mg/2 Ml Vial) 20 mg IVPUSH DAILY [facility] Last Admin: 02/04/21 08:14 Dose: 20 mg Documented by: Heparin Sodium (Porcine) (Heparin Sodium 5,000 Units/Ml Vial) 5,000 units SUBCUT Q8H [facility] Last Admin: 01/31/21 18:35 Dose: Not Given Documented by: Diltiazem HCl 100 mg/ Sodium (Chloride) 100 mls @ 5 mls/hr IV TITRATE [facility]; Protocol Last Titration: 01/31/21 14:41 Dose: 15 mg/hr, 15 mls/hr Documented by: Sodium Chloride (Normal Saline) 500 mls @ 250 mls/hr IV .BOLUS ONE Stop: 01/31/21 13:37 Last Admin: 01/31/21 11:51 Dose: 250 mls/hr Documented by: Sodium Chloride (Normal Saline) 100 mls @ 75 mls/hr IV ASDIRECTED [facility] Last Admin: 01/31/21 12:43 Dose: 75 mls/hr Documented by: Insulin Glargine (Insulin Glarg,Human.Rec.Analog 100 Unit/Ml) 10 unit SUBCUT DAILY [facility] Last Admin: 02/03/21 08:21 Dose: Not Given Documented by: Iopamidol (Iopamidol 755 Mg/Ml 100 Ml Bottle) 100 ml IVPUSH ONETIME ONE Stop: 01/31/21 11:43 Last Admin: 01/31/21 12:42 Dose: 100 ml Documented by: Metoprolol Tartrate (Metoprolol Tartrate 25 Mg Tab) 12.5 mg PO Q12H [facility] Metoprolol Tartrate (Metoprolol Tartrate 25 Mg Tab) 12.5 mg PO ONETIME ONE Stop: 01/31/21 15:01 Last Admin: 01/31/21 16:59 Dose: 12.5 mg Documented by: Metoprolol Tartrate (Metoprolol Tartrate 25 Mg Tab) 25 mg PO Q12H [facility] Last Admin: 02/01/21 07:59 Dose: 25 mg Documented by: Metoprolol Tartrate (Metoprolol Tartrate 5 Mg/5 Ml Sdv) 5 mg IVPUSH ONETIME PRN PRN Reason: Other Last Admin: 02/01/21 00:03 Dose: 5 mg Documented by: Metoprolol Tartrate (Metoprolol Tartrate 5 Mg/5 Ml Sdv) 5 mg IVPUSH ONETIME PRN PRN Reason: Other Metoprolol Tartrate (Metoprolol Tartrate 25 Mg Tab) 25 mg PO ONETIME ONE Stop: 02/01/21 10:01 Last Admin: 02/01/21 10:20 Dose: 25 mg Documented by: Metoprolol Tartrate (Metoprolol Tartrate 50 Mg Tab) 50 mg PO Q12H [facility] Last Admin: 02/02/21 08:22 Dose: 50 mg Documented by: Metoprolol Tartrate (Metoprolol Tartrate 25 Mg Tab) 12.5 mg PO Q12HR [facility] Last Admin: 02/02/21 20:28 Dose: 12.5 mg Documented by: Morphine Sulfate (Morphine 2 Mg/Ml Syringe) 2 mg IVPUSH Q4H PRN PRN Reason: Pain (severe 7-10) Stop: 02/01/21 13:01 Sodium Chloride (Sodium Chloride 0.9% 10 Ml Syringe) 10 ml FLUSH ONETIME PRN PRN Reason: IV FLUSH Last Admin: 01/31/21 12:43 Dose: 10 ml Documented by: - Exam General: Reports: Alert, Oriented HEENT: Reports: Pupils Equal, Pupils Reactive, EOMI, Mucous Membr. Moist/[place] Neck: Reports: Supple Lungs: Reports: Clear to Auscultation, Normal Respiratory Effort Cardiovascular: Reports: Regular Rate, Regular Rhythm GI/Abdominal Exam: Normal Bowel Sounds, Soft, Non-Tender, No Organomegaly, No Distention, No Abnormal Bruit, No Mass, Pelvis Stable (Male) Exam: No Hernia, Normal Inspection, Normal Prostate, Circumcised Rectal (Males) Exam: Normal Exam, Normal Rectal Tone, Prostate Normal Back Exam: Reports: Normal Inspection, Full Range of Motion Extremities: Normal Inspection, Normal Range of Motion, Non-Tender, No Pedal Edema, Normal Capillary Refill Skin: Reports: Warm, Dry, Intact Wound/Incisions: Reports: Healing Well Neurological: Reports: No New Focal Deficit Psy/Mental Status: Reports: Alert, Normal Affect, Normal Mood
[2021-02-04] MEDS ORDERED: metFORMIN 500 MG Tab PO SCH (17:00)
[2021-02-06] MEDS ORDERED: Furosemide 20 MG Tab PO SCH (09:00)
--- NOTE | 2021-02-27 08:21 | PCM.PN ---
- General Info Date of Service: 02/03/21 Admission Dx/Problem (Free Text): afib rvr////diabetes with catabolism and hypoproteinemia Subjective Update: 02/03/21 doing well afib rate controlled on oral diltiazem and increased beta clara. cont lasix and added arb for better chf contol and b.p control. 2) diabetes poorly controlled as he ran out of meds and no provider here. working and will arrange follow up and he agrees to get meds . 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 3)obesity consulted dietary and d.e. restart monitoring and activity. 4)skin dermatitis, likely dry skin and fungal infection start topical. resp :chin a nd chf suggested form exam and lab. rule out right heart failure. 5)hypertension stable add arb 6)proteinuria. boh Functional Status: Reports: Pain Controlled - Review of Systems General: Reports: No Symptoms HEENT: Reports: No Symptoms Pulmonary: Reports: No Symptoms Cardiovascular: Reports: No Symptoms Gastrointestinal: Reports: No Symptoms Genitourinary: Reports: No Symptoms Musculoskeletal: Reports: No Symptoms Skin: Reports: No Symptoms Neurological: Reports: No Symptoms Psychiatric: Reports: No Symptoms - Patient Data Vitals - Most Recent: Last Vital Signs Temp 36.7 C 02/04/21 12:00 Pulse 84 02/04/21 10:21 Resp 16 02/04/21 12:00 BP 107/70 02/04/21 10:22 Pulse Ox 95 02/04/21 12:00 Weight - Most Recent: 94.347 kg Med Orders - Current: Current Medications Discontinued Medications Acetaminophen (Acetaminophen 325 Mg Tab) 650 mg PO Q6H PRN PRN Reason: Pain (Mild 1-3)/fever Hydrocodone Bitart/Acetaminophen (Acetaminophen/Hydrocodone 325-5 Mg Tab) 1 tab PO Q6H PRN PRN Reason: Pain (moderate 4-6) Albuterol/Ipratropium (Albuterol/Ipratropium 3.0-0.5 Mg/3 Ml Neb Soln) 3 ml NEB Q4H PRN PRN Reason: Shortness Of Breath/wheezing Apixaban (Apixaban 5 Mg Tab) 5 mg PO ONETIME ONE Stop: 01/31/21 09:07 Last Admin: 01/31/21 09:15 Dose: 5 mg Documented by: Apixaban (Apixaban 5 Mg Tab) 5 mg PO BID [facility] Last Admin: 02/04/21 08:15 Dose: 5 mg Documented by: Aspirin (Aspirin 81 Mg Tab.Ec) 81 mg PO DAILY [facility] Last Admin: 02/04/21 08:14 Dose: 81 mg Documented by: Atorvastatin Calcium (Atorvastatin 20 Mg Tab) 20 mg PO BEDTIME [facility] Last Admin: 02/03/21 20:12 Dose: 20 mg Documented by: Diltiazem HCl (Diltiazem 50 Mg/10 Ml Sdv) 20 mg IVPUSH ONETIME ONE Stop: 01/31/21 09:07 Last Admin: 01/31/21 09:19 Dose: 10 mg Documented by: Diltiazem HCl (Diltiazem 50 Mg/10 Ml Sdv) Confirm Administered Dose 50 mg .ROUTE .STK-MED ONE Stop: 01/31/21 09:07 Last Admin: 01/31/21 09:11 Dose: Not Given Documented by: Diltiazem HCl (Diltiazem 240 Mg Cap.Er) 240 mg PO ONETIME ONE Stop: 02/03/21 15:25 Last Admin: 02/03/21 15:55 Dose: 240 mg Documented by: Diltiazem HCl (Diltiazem 120 Mg Cap.Cd) 120 mg PO DAILY [facility] Last Admin: 02/04/21 10:21 Dose: 120 mg Documented by: Furosemide (Furosemide 40 Mg/4 Ml Vial) 40 mg IVPUSH NOW ONE Stop: 01/31/21 10:13 Last Admin: 01/31/21 10:35 Dose: 40 mg Documented by: Furosemide (Furosemide 20 Mg/2 Ml Vial) 20 mg IVPUSH BID [facility] Last Admin: 02/01/21 07:59 Dose: 20 mg Documented by: Furosemide (Furosemide 20 Mg/2 Ml Vial) 20 mg IVPUSH DAILY [facility] Last Admin: 02/04/21 08:14 Dose: 20 mg Documented by: Furosemide (Furosemide 20 Mg Tab) 20 mg PO Q48H [facility] Heparin Sodium (Porcine) (Heparin Sodium 5,000 Units/Ml Vial) 5,000 units S UBCUT Q8H [facility] Last Admin: 01/31/21 18:35 Dose: Not Given Documented by: Diltiazem HCl 100 mg/ Sodium (Chloride) 100 mls @ 5 mls/hr IV TITRATE [facility]; Protocol Last Titration: 01/31/21 14:41 Dose: 15 mg/hr, 15 mls/hr Documented by: Sodium Chloride (Normal Saline) 500 mls @ 250 mls/hr IV .BOLUS ONE Stop: 01/31/21 13:37 Last Admin: 01/31/21 11:51 Dose: 250 mls/hr Documented by: Sodium Chloride (Normal Saline) 100 mls @ 75 mls/hr IV ASDIRECTED [facility] Last Admin: 01/31/21 12:43 Dose: 75 mls/hr Documented by: Promethazine HCl 12.5 mg/ (Sodium Chloride) 50.5 mls @ 100 mls/hr IV Q6H PRN PRN Reason: Nausea/Vomiting Diltiazem HCl 100 mg/ Sodium (Chloride) 100 mls @ 5 mls/hr IV TITRATE [facility]; Protocol Last Titration: 02/03/21 13:00 Dose: 5 mg/hr, 5 mls/hr Documented by: Insulin Glargine (Insulin Glarg,Human.Rec.Analog 100 Unit/Ml) 10 unit SUBCUT DAILY [facility] Last Admin: 02/03/21 08:21 Dose: Not Given Documented by: Insulin Glargine (Insulin Glarg,Human.Rec.Analog 100 Unit/Ml) 20 unit SUBCUT DAILY [facility] Last Admin: 02/04/21 08:13 Dose: 20 units Documented by: Insulin Glargine (Insulin Glarg,Human.Rec.Analog 100 Unit/Ml) 32 unit SUBCUT BEDTIME [facility] Insulin Human Lispro (Insulin Lispro 100 Unit/Ml 10 Ml Vial) 0 unit SUBCUT QIDACANDBED [facility]; Protocol Last Admin: 02/04/21 11:49 Dose: 4 unit Documented by: Iopamidol (Iopamidol 755 Mg/Ml 100 Ml Bottle) 100 ml IVPUSH ONETIME ONE Stop: 01/31/21 11:43 Last Admin: 01/31/21 12:42 Dose: 100 ml Documented by: Lorazepam (Lorazepam 2 Mg/Ml Sdv) 0.5 mg IV Q6H PRN PRN Reason: Agitation Losartan Potassium (Losartan 25 Mg Tab) 25 mg PO DAILY [facility] Last Admin: 02/04/21 10:22 Dose: 25 mg Documented by: Metformin HCl (Metformin 500 Mg Tab) 1,000 mg PO BIDMEALS [facility] Metoprolol Tartrate (Metoprolol Tartrate 25 Mg Tab) 12.5 mg PO Q12H [facility] Metoprolol Tartrate (Metoprolol Tartrate 25 Mg Tab) 12.5 mg PO ONETIME ONE Stop: 01/31/21 15:01 Last Admin: 01/31/21 16:59 Dose: 12.5 mg Documented by: Metoprolol Tartrate (Metoprolol Tartrate 25 Mg Tab) 25 mg PO Q12H [facility] Last Admin: 02/01/21 07:59 Dose: 25 mg Documented by: Metoprolol Tartrate (Metoprolol Tartrate 5 Mg/5 Ml Sdv) 5 mg IVPUSH ONETIME PRN PRN Reason: Other Last Admin: 02/01/21 00:03 Dose: 5 mg Documented by: Metoprolol Tartrate (Metoprolol Tartrate 5 Mg/5 Ml Sdv) 5 mg IVPUSH ONETIME PRN PRN Reason: Other Metoprolol Tartrate (Metoprolol Tartrate 25 Mg Tab) 25 mg PO ONETIME ONE Stop: 02/01/21 10:01 Last Admin: 02/01/21 10:20 Dose: 25 mg Documented by: Metoprolol Tartrate (Metoprolol Tartrate 50 Mg Tab) 50 mg PO Q12H [facility] Last Admin: 02/02/21 08:22 Dose: 50 mg Documented by: Metoprolol Tartrate (Metoprolol Tartrate 25 Mg Tab) 12.5 mg PO Q12HR [facility] Last Admin: 02/02/21 20:28 Dose: 12.5 mg Documented by: Metoprolol Tartrate (Metoprolol Tartrate 50 Mg Tab) 50 mg PO Q12H [facility] Last Admin: 02/04/21 08:14 Dose: 50 mg Documented by: Metoprolol Tartrate (Metoprolol Tartrate 25 Mg Tab) 25 mg PO Q12H [facility] Last Admin: 02/04/21 08:14 Dose: 25 mg Documented by: Morphine Sulfate (Morphine 2 Mg/Ml Syringe) 2 mg IVPUSH Q4H PRN PRN Reason: Pain (severe 7-10) Stop: 02/01/21 13:01 Liraglutide [Victoza ] 18 Mg/3 Ml Pen Ptom 1.8 ml SQ DAILY [facility] Last Admin: 02/04/21 08:15 Dose: Not Given Documented by: Sodium Chloride (Sodium Chloride 0.9% 10 Ml Syringe) 10 ml FLUSH ASDIRECTED PRN PRN Reason: Keep Vein Open Last Admin: 01/31/21 09:11 Dose: 10 ml Documented by: Sodium Chloride (Sodium Chloride 0.9% 10 Ml Syringe) 10 ml FLUSH ONETIME PRN PRN Reason: IV FLUSH Last Admin: 01/31/21 12:43 Dose: 10 ml Documented by: - Exam Quality Assessment: Supplemental Oxygen General: Alert, Oriented (Male) Exam: Other (redness and irritation suggests yeast derm. feet as wellpulses plus one feet cool sensation normal ) Skin: Cool, Rash Wound/Incisions: Healing Well Neurological: No New Focal Deficit Psy/Mental Status: Alert, Normal Affect, Normal Mood - Patient Data Result Diagrams: 02/04/21 04:56 02/04/21 04:56 Sepsis Event Note - Evaluation Sepsis Screening Result: No Definite Risk - Problem List & Annotations (1) Diabetes 1.5, managed as type 1 SNOMED Code(s): 494991800 Code(s): E13.9 - OTHER SPECIFIED DIABETES MELLITUS WITHOUT COMPLICATIONS Status: Acute Priority: High Onset Date: ~01/31/21 Annotation/Comment:: no meds and was not treating / help with affording meds pending. (2) Hypoproteinemia SNOMED Code(s): 2709986 Code(s): E77.8 - OTHER DISORDERS OF GLYCOPROTEIN METABOLISM Status: Acute Priority: High Onset Date: ~01/31/21 Annotation/Comment:: catabolism sec to no insulin improved. needs d.e follow up (3) Hypercatabolic hypoproteinemia SNOMED Code(s): 3499931, 23217209 Code(s): E88.09 - OTH DISORDERS OF PLASMA-PROTEIN METABOLISM, NEC Status: Acute Priority: High Onset Date: ~01/31/21 Annotation/Comment:: protienuria and mild renal insuff on lasix and added arb and monitoring b.p which was high on admission . (4) Chronic renal insufficiency, stage II (mild) SNOMED Code(s): 421601576 Code(s): N18.2 - CHRONIC KIDNEY DISEASE, STAGE 2 (MILD) Status: Acute Priority: Medium Onset Date: ~02/01/21 (5) CHF (congestive heart failure), NYHA class II SNOMED Code(s): 722231981, 321085470 Code(s): I50.9 - HEART FAILURE, UNSPECIFIED Status: Acute Priority: Medium Onset Date: ~01/31/21 Qualifiers: Congestive heart failure type: diastolic Congestive heart failure chronicity: acute on chronic Qualified Code(s): I50.33 - Acute on chronic diastolic (congestive) heart failure Annotation/Comment:: afib and cad known with lvh make high risk will need follow up primary care - Problem List Review Problem List Initiated/Reviewed/Updated: Yes - Plan Plan:: Patient is a 65-year-old male with a history of diabetes, atrial fibrillation, and hypertension who presented to the ER due to shortness of breath and chest pain for 4 days. Assessment: Acute hypoxic respiratory failure -Etiology could be due to CHF, atrial fibrillation with RVR or cardiac ischemia. D-dimer positive, CT angio chest negative for PE -Not on home oxygen -Pulse ox -Oxygen therapy to keep oxygen saturation greater than 92% Atrial fibrillation with RVR -History of atrial fibrillation with RVR 4 years ago -Not on medication (including blood thinner) for his atrial fibrillation -Was on Eliquis. -Heart rate up to 150 in the ER -Possibly associated with chest pain Chest pain -Etiology unknown. Could be due to demand ischemia due to atrial fibrillation with RVR -EKG no ST elevation -Troponin negative x 3 Diastolic CHF exacerbation? -BNP 6679 -Could be due to diastolic dysfunction -CXR and CTA chest -cardiomegaly and pulmonary vascular congestion -Echocardiogram-LVEF 60 to 65%; moderate septal left ventricle hypertrophy; moderate MR; moderate to TR; there is severe biatrial dilation. -Mag 1.9 phos 3.0 DM type II with hyperglycemia -Home medications include lantus 32 units bedtime, victoza and metformin -I would like to order the Lantus 10 units daily and insulin sliding scale. Adjust insulin based on sugar levels -Hemoglobin A1c 8.3 HTN -Not on blood pressure medication -Hydralazine as needed BRENDEN -creatinine 1.9 on 10/25/2015 -Could be due to diabetic nephropathy -Avoid nephrotoxic meds -Creatinine 1.1 today Leukocytosis 9.94 -No evidence of infection: Afebrile and x-ray negative for pneumonia -Closely monitor Elevation of D-dimer 0.67 -CT angio chest negative for PE -Doppler ultrasound negative for DVT Plan: 1. Continue to be monitored in ICU 2. Increased metoprolol to 62.5 mg twice daily Continue diltiazem drip as needed Continue Eliquis 5 mg twice daily 3. Continue Aspirin and Lipitor 4. Lantus 10 units daily, continue home medication Jardiance. Insulin sliding scale 5. Lasix 20 mg IV daily. Intake and output. Daily weight. Repeat electrolytes and renal function daily 6. DVT prophylaxis: Eliquis 7. CODE STATUS DNR/DNI. Deposition PT OT Possible discharge in 1 or 2 days. 02/03/21 doing well afib rate controlled on oral diltiazem and increased beta clara. cont lasix and added arb for better chf contol and b.p control. 2) diabetes poorly controlled as he ran out of meds and no provider here. working and will arrange follow up and he agrees to get meds . 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 3)obesity consulted dietary and d.e. restart monitoring and activity. 4)skin dermatitis, likely dry skin and fungal infection start topical. resp :chin a nd chf suggested form exam and lab. rule out right heart failure. 5)hypertension stable add arb 6)proteinuria. boh
== END 2021-02-04 14:30 | disposition home or self-care (01) | DRG 308 ==
LOC: JD.ED 08:47 → JD.ICU 12:17 → OBSVTOIN 02-01 14:00
PROVIDERS: ADMIT Internal Medicine; ATTEND Internal Medicine
DX: I48.91 Unspecified atrial fibrillation (principal); I50.33 Acute on chronic diastolic (congestive) heart failure; J96.01 Acute respiratory failure with hypoxia; I13.0 Hypertensive heart and chronic kidney disease with heart failure and stage 1 through stage 4 chronic kidney disease, or unspecified chronic kidney disease; I24.8 Other forms of acute ischemic heart disease; Z66 Do not resuscitate; E77.8 Other disorders of glycoprotein metabolism; E88.09 Other disorders of plasma-protein metabolism, not elsewhere classified; H54.7 Unspecified visual loss; E11.22 Type 2 diabetes mellitus with diabetic chronic kidney disease; E11.65 Type 2 diabetes mellitus with hyperglycemia; N18.31 Chronic kidney disease, stage 3a; R79.1 Abnormal coagulation profile; Z79.82 Long term (current) use of aspirin; Z79.01 Long term (current) use of anticoagulants; Z79.4 Long term (current) use of insulin; Z79.899 Other long term (current) drug therapy; Z98.49 Cataract extraction status, unspecified eye
CPT/HCPCS: 36415; 71045; 71045-26; 71275; 71275-26; 80053; 81001; 82947; 83036; 83735; 83880; 84100; 84443; 84484; 85025; 85379; 85610; 85730; 86140; 93005; 93306; 93970; 93970-26; 96365; 96366; 96375; 96376; 97165-GO; 99284; 99285-25; A9270-GY; G0378; J1815-GY; J1940; J3490; J7030; Q9967; U0002